=== PATIENT | female | born 1940 | race Caucasian/White ===

== ENCOUNTER 2018-02-23 22:49 | Inpatient (IN) | payer MEDICARE, BC ==
[2018-02-23 23:34] LABS: #Eosinphils 0.2 thou/uL (0.0-0.7); #Lymphocytes 1.9 thou/uL (1.20-3.40); #Monocytes 0.9 thou/uL (0.11-0.59); #Neutrophils 8.1 thou/uL (1.40-6.50); %Basophils 0.3 % (0.0-1.0); %Lymphocytes 17.2 % (21.0-51.0); %Monocytes 7.8 % (0.0-10.0); %Neutrophils 72.8 % (42.0-75.0); Hemoglobin 11.1 g/dL (12.0-16.0); Mean Corpuscular Hemoglobin 27.5 pg (27.0-31.0); Mean Corpuscular Volume 83.4 fL (78.0-98.0); Mean Platelet Volume 8.4 fL (7.4-10.4); Platelet Count 272 thou/uL (130-400); RBC Distribution Width 14.7 % (11.5-14.5); Red Blood Cell (RBC) Count 4.05 mill/uL (4.20-5.40); White Blood Cell (WBC) Count 11.2 thou/uL (4.8-10.8)
[2018-02-23 23:41] LABS: INR-International Normal Ratio 1.4; Prothrombin Time 17.2 SEC (12.0-14.7)
--- NOTE | 2018-02-23 23:44 | RAD ---
CHEST ONE VIEW: HISTORY: Tachycardia. COMPARISON: None. FINDINGS: The cardiac silhouette is magnified and enlarged. The pulmonary vasculature is engorged with widespr ead reticulonodular interstitial prominence. The mediastinum is midline with aortic calcification. No lobar consolidation or evidence of pneumothorax. IMPRESSION: Cardiomegaly with pulmonary vascular congestion. POS: H
[2018-02-23 23:54] LABS: ALT (SGPT) 24 U/L (8-55); AST (SGOT) 11 U/L (5-34); Albumin 3.5 g/dL (3.4-4.8); Alkaline Phosphatase 72 U/L (40-150); Anion Gap 12 mmol/L (10-20); BUN (Urea Nitrogen) 14 mg/dL (9.8-20.1); Bilirubin, Total 0.8 mg/dL (0.2-1.2); CK (CPK) 51 U/L (29-168); Calc. Creatinine Clearance 0 mL/min (70-130); Calcium 8.6 mg/dL (7.8-10.44); Carbon Dioxide 25 mmol/L (23-31); Chloride 107 mmol/L (98-107); Estimated GFR-MDRD 72; Glucose 104 mg/dL (83-110); Lipase 7 U/L (8-78); Potassium 3.4 mmol/L (3.5-5.1); Protein, Total 6.5 g/dL (6.0-8.3); Sodium 141 mmol/L (136-145)
[2018-02-23 23:58] LABS: CKMB 1.6 ng/mL (0-6.6); Troponin I 0.025 ng/mL (< 0.028)
[2018-02-24] MEDS ORDERED: Nitroglycerin 0.4 MG TAB (25 Tab Bottle) ONE (00:40)
[2018-02-24 05:08] LABS: Troponin I 0.038 ng/mL (< 0.028)
[2018-02-24] MEDS ORDERED: Potassium Chloride 20 MEQ TAB ONE (05:12)
[2018-02-24] MEDS ORDERED: Furosemide 40 MG/4 ML VIAL SLOW IVP SCH ×2 (06:29→07:00)
[2018-02-24] MEDS ORDERED: Loratadine 10 MG TAB PO PRN (06:29)
[2018-02-24] MEDS ORDERED: Zolpidem Tartrate 5 MG TAB PO PRN (06:29)
[2018-02-24] MEDS ORDERED: Loperamide HCl 2 MG CAP PO PRN (06:29)
[2018-02-24] MEDS ORDERED: Senokot 8.6 MG TAB PO PRN (06:29)
[2018-02-24] MEDS ORDERED: Milk Of Magnesia 30 ML UDCUP PO PRN (06:29)
[2018-02-24] MEDS ORDERED: Albuterol Sulfate 2.5 mg/3 ml Neb NEB PRN (06:29)
[2018-02-24] MEDS ORDERED: Metoclopramide HCl 10 MG/2 ML VIAL IVP PRN (06:29)
[2018-02-24] MEDS ORDERED: Chloraseptic Spray 180 ml Bottle PO PRN (06:29)
[2018-02-24] MEDS ORDERED: Acetaminophen 325 MG TAB PO PRN (06:29)
[2018-02-24] MEDS ORDERED: Artificial Tears 18 DROP/0.9 ML EA EYE PRN (06:29)
[2018-02-24] MEDS ORDERED: Diabetic Tussin 200 MG/10 ML UDCUP PO PRN (06:29)
[2018-02-24] MEDS ORDERED: Mag-Al 1200 mg/1200 mg/30 ML UDCUP PO PRN (06:29)
[2018-02-24] MEDS ORDERED: Sodium Chloride 0.65% Nasal 44 ML BOT EA NARE PRN (06:29)
[2018-02-24] MEDS ORDERED: Eucerin (Mineral Oil/Petrolatum,White) 30 gm Jar TOP PRN (06:29)
--- NOTE | 2018-02-24 06:36 | HP ---
PRIMARY CARE PHYSICIAN: Dr. Tc Foster. REASON FOR ADMISSION: Dyspnea. HISTORY OF PRESENT ILLNESS: A 77-year-old female who was recently hospitalized at [facility]. Patient went there because she was feeling palpitations and dyspnea. She was diagnosed with atrial fibrillation. She was started on Cardizem CD, flecainide, and Eliquis. She remained in hospital, Friday and discharged on last Friday. Patient reports that by the time of discharge, she was feeling better, she was feeling up to her baseline. On Friday, after discharge at home, she did very well. Friday morning, the patient started feeling shortness of breath again. She was feeling palpitations. She was feeling weak and that is why she decided to come to the hospital for evaluation. Patient reports that at [facility], they did EKG, echocardiogram. The patient reports that Dr. Guerra, manager company, was following. The patient was pleased with Cardiology and primary attending care, but she was not pleased with the hospital and that is why today she decided to come to our hospital. The patient is thinking that she was discharged prematurely. As per patient, Cardiology cleared her for discharge on the day of discharge. Patient denies any fever or chills. She denies any UTI symptoms. She denies any chest pain. She denies any orthopnea or PND. The patient reports leg swelling. The patient also reports that she had ankle edema at [facility], but she is not sure whether she was given any Lasix. She is also not sure whether she has congestive heart failure as nobody mentioned about congestive heart failure to her. Today, in the emergency room, routine blood tests showed elevated BNP, elevated troponin, hypokalemia. Patient does have underlying history of asthma. She had elevated D-dimer and that is why CT angio was done, which showed pleural effusion, but no pulmonary embolism. Chest x-ray did show pulmonary vascular congestion. In the emergency room, patient was appeared tachypneic and that is why we decided to keep this patient in the hospital for treatment. ALLERGIES: No known drug allergy. CURRENT HOME MEDICATIONS: Cardizem-CD 120 mg p.o. daily, Protonix 40 mg p.o. daily, Eliquis 5 mg p.o. b.i.d., aspirin 81 mg p.o. 2 tablets daily, flecainide 50 mg twice daily, Dulera 1 puff inhalation b.i.d., Singulair 10 mg p.o. daily, Ventolin inhaler 2 puffs q.6 hourly p.r.n. PAST MEDICAL HISTORY: Paroxysmal atrial fibrillation, hypertension, dyslipidemia, asthma, chronic physical deconditioning. PAST SURGICAL HISTORY: Retinal detachment surgery, total hysterectomy, back surgery. PAST PSYCHIATRIC HISTORY: Reviewed and negative. SOCIAL HISTORY: Patient lives alone at home. She denies any tobacco, alcohol, or illicit drug abuse. She ambulates with a walker and cane. FAMILY HISTORY: No strong family history of premature coronary artery disease, stroke, or cancer. EMERGENCY ROOM COURSE: The patient is given potassium chloride 20 mEq, nitroglycerin 0.4 mg sublingual. REVIEW OF SYSTEMS: The following complete review of systems was negative, unless otherwise mentioned in the HPI or below: Constitutional: Weight loss or gain, ability to conduct usual activities. Skin: Rash, itching. Eyes: Double vision, pain. ENT/Mouth: Nose bleeding, neck stiffness, pain, tenderness. Cardiovascular: Palpitations, dyspnea on exertion, orthopnea. Respiratory: Shortness of breath, wheezing, cough, hemoptysis, fever or night sweats. Gastrointestinal: Poor appetite, abdominal pain, heartburn, nausea, vomiting, constipation, or diarrhea. Genitourinary: Urgency, frequency, dysuria, nocturia. Musculoskeletal: Pain, swelling. Neurologic/Psychiatric: Anxiety, depression. Allergy/Immunologic: Skin rash, bleeding tendency. Please see my HPI for pertinent positive and negative. PHYSICAL EXAMINATION: VITAL SIGNS: On arrival, blood pressure 131/62, pulse 116 irregular, respiratory rate 18, temperature 98.2, saturation 94% on 2 liter oxygen, weight 113.4 kilograms. GENERAL: Patient is currently alert, awake, tachycardic, in no obvious acute distress. HEAD: Normocephalic, atraumatic. EYES: Pupils are round, reactive to light. Extraocular muscle intact. ENT: Oropharynx within normal limits. Moist mucous membrane. No oral lesion, no pharyngeal erythema, no exudate. NECK: Supple. No JVD, no thyromegaly, no carotid bruit. LUNGS: Bibasilar rales noted. Air entry reduced at base, few end-expiratory wheezing heard. CARDIAC: S1, S2 irregular. No murmur elicited, no gallop, no rub. ABDOMEN: Obesity present. Bowel sounds present, nontender, and nondistended. No organomegaly, no mass, no suprapubic tenderness. BACK: Unremarkable. No CVA tenderness. EXTREMITIES: Upper extremity: Passive movement of all joints are normal. Lower extremities: Bilateral lower extremity pitting edema noted predominantly at ankle. Good distal pulsation. SKIN: No skin rash. HEMATOLOGICAL SYSTEM: No lymphadenopathy. PSYCHIATRIC: Normal affect. NEUROLOGIC: Nonfocal examination. Patient is moving all four limbs. Speech normal. SIGNIFICANT LABORATORY AND DIAGNOSTIC DATA: EKG showing sinus tachycardia, occasional PVCs, monitor was showing intermittent atrial fibrillation. Chest x- ray showed cardiomegaly, pulmonary vascular congestion. CT angio showed pleural effusion and congestion, but no pulmonary embolism. CBC: WBC 11.2, hemoglobin 11.1, platelet 272,000. INR 1.4. D-dimer 0.87. BMP: Sodium 141, potassium 3.4, chloride 107, carbon dioxide 25, anion gap 12, BUN 14, creatinine 0.78, glucose 104, calcium 8.6, magnesium 1.9. LFTs: AST 11, ALT 24 , alkaline phosphatase 72, albumin 3.5. CK-MB 1.6, troponin 0.025. CK 51. Repeat troponin 0.038. BNP 295.3. TSH 2.19. ASSESSMENT AND PLAN: 1. Dyspnea, most likely related with the patient has a new diagnosis of acute diastolic heart failure secondary to atrial fibrillation. We will try to get echocardiography report from [facility] which was done last week. We will treat with Lasix 40 mg IV b.i.d. We will continue Cardizem-CD 120 mg p.o. daily, Eliquis 5 mg p.o. b.i.d., Tambocor 50 mg p.o. b.i.d. The patient might have component of asthma exacerbation and that is why we will also continue Dulera two puff inhalation b.i.d., Singulair 10 mg daily, and Ventolin nebulization q.6 hourly. 2. Acute on chronic diastolic heart failure. Patient has elevated BNP. She has edema of lower extremity. Her clinical history consistent with congestive heart failure, stage C, most likely related with underlying atrial fibrillation. 3. Asthma with possible exacerbation. As mentioned above, we will continue Dulera two puff inhalation b.i.d., Singulair 10 mg daily, and Ventolin nebulization q.6 hourly p.r.n. 4. Demand ischemia of myocardium. We will do serial cardiac enzymes. We will continue aspirin 81 mg p.o. daily. Cardiology will be consulted while in hospital as well. 5. Hypokalemia. Patient is given potassium chloride in the emergency room. We will give her another dose of potassium 20 mEq p.o. b.i.d. and will repeat BMP tomorrow. 6. Paroxysmal atrial fibrillation. Currently, patient has paroxysmal atrial fibrillation. She is in and out of atrial fibrillation. Cardiology will be consulted. We will continue Cardizem-CD, Tambocor as per home dosage along with anticoagulation therapy with Eliquis 5 mg twice daily. 7. Gastroesophageal reflux disease. We will continue Protonix 40 mg p.o. daily. 8. Morbid obesity. Dietary education given, weight loss education given. 9. Chronic physical deconditioning. We will consult PT evaluation while in hospital as well as OT evaluation while in hospital and will consider rehab screen for possible rehab placement. 10. Deep venous thrombosis prophylaxis not needed because the patient is already on Eliquis therapy. 11. Gastrointestinal prophylaxis. The patient is already on Protonix therapy. CODE STATUS: The patient is FULL CODE. Patient does not have any surrogate decision maker. Disposition plan based on clinical course. We are expecting patient's stay in hospital 24-48 hours. Plan of care discussed with the patient in detail. MTDD
[2018-02-24 06:38] VITALS: BMI 43.4
[2018-02-24] MEDS: Mometasone/Formoterol 120 PUFF INHALER INH SCH ×2 (07:56→19:18)
[2018-02-24 08:19] LABS: Troponin I 0.032 ng/mL (< 0.028)
--- NOTE | 2018-02-24 08:41 | CT ---
PRELIMINARY REPORT/[facility]/EMERGENTY AFTER-HOURS PROCEDURE CT Angiography Chest With Intravenous Contrast EXAM DATE/TIME: 02/24/2018 2:43 AM CLINICAL HISTORY: 77 years old, female; Signs and symptoms; Dyspnea and shortness of breath; Patient HX: 77 female pres enting to the er for shortness of breath. Reports developing shortness of breath while watching tv th is evening. Reports having similar symptoms about 1 week ago when she was diagnosed with atrial fibrillation TECHNIQUE: Axial computed tomographic angiography images of the chest with intravenous contrast using CT angiogr aphy protocol. Coronal reformatted images were created and reviewed. MIP reconstructed images were created and reviewed. COMPARISON: No relevant prior studies available. FINDINGS: Pulmonary arteries: The ascending aorta at the level of the right pulmonary artery measures 3 cm. The main pulmonary artery measures 2.4 cm. No evidence of acute pulmonary embolism upto the subsegmental level. Aorta: Mild atherosclerotic calcifications affect the aorta and its branches. Other veins: Reflux of contrast in the hepatic veins likely represents right heart failure. Lungs: Opacities in both lung bases likely represent atelectasis or edema. Nodular opacities in the r ight upper lobe largest measuring 8 mm likely represent infection. Opacity in the right lower lobe li jeanie represents infection. Mild ground glass opacities in both lungs with septal thickening may repre sent mild edema. A nodule measuring 4 mm is seen in the right lung base. A nodule measuring 5 mm is s een in the left upper lobe. Opacity in the lingula may represent atelectasis or infection. A nodule m easuring 3 mm is seen in the left lung base. Pleural space: Bilateral small pleural effusions are seen. Heart: There is calcification of the mitral valve annulus. Coronary artery calcifications are noted. Bones/joints: Mild dextroscoliosis of the thoracic spine is seen. Moderate dextroscoliosis of the lum bar spine is seen. Moderate degenerative changes affect the spine. Chronic posterior dislocation of t he medial end of the left clavicle is seen. Mild wedge compression deformity of the midthoracic vertebra is age indeterminate. Soft tissues: Unremarkable. Lymph nodes: Mildly enlarged pretracheal lymph node measuring 1.2 cm is seen. Mildly enlarged subcari nal lymph node measuring 1.6 cm is seen. Mildly enlarged right hilar lymph node measuring 2 cm is see n. Spleen: Several calcified granulomas are noted in the spleen. IMPRESSION: 1. No evidence of acute pulmonary embolism upto the subsegmental level. 2. Opacities in both lung bases likely represent atelectasis or edema. Nodular opacities in the right upper lobe likely represent infection. Opacity in the right lower lobe likely represents infection. Opacity in the lingula may represent atelectasis or infection. 3. Mild ground glass opacities in both lungs with septal thickening may represent mild edema. 4. Nodule measuring 4 mm in the right lung base. Nodule measuring 5 mm in the left upper lobe. Nodule measuring 3 mm in the left lung base. No followup study is recommended if the patient is at low risk . An optional follow up study can be obtained in 12 months if the patient is at high risk. 5. Bilateral small pleural effusions. 6. Mildly enlarged mediastinal lymph nodes are likely reactive. Thank you for allowing us to participate in the care of your patient. Dictated and Authenticated by: Lida Lua MD 02/24/2018 4:46 AM Central Time ([place] & [place]) FINAL REPORT EMERGENCY AFTER HOURS CT ANGIOGRAM THORAX WITH IV CONTRAST AND 3D RECONSTRUCTIONS: Date: 02/24/18 HISTORY: Shortness of breath. IMPRESSION: 1. No CT evidence of a pulmonary embolus. 2. Atherosclerotic vascular calcifications in the thoracic aorta and coronary arteries. Thoracic aor ta is normal in caliber without evidence of an aortic dissection. 3. Small bilateral pleural effusions and atelectasis. 4. There are nodular densities, as well as patchy parenchymal opacities seen within the right upper, right middle, and right lower lobes, and to a lesser extent at the left lung base, likely related to infectious or inflammatory process. However, given that some of the densities have a nodular appeara nce, follow-up evaluation is recommended to ensure resolution. 5. Mildly enlarged mediastinal lymph nodes, as well as bilateral hilar lymph nodes, which are likely reactive in origin. 6. Mild interstitial thickening which may be related to an element of mild pulmonary edema infectiou s process. 7. Degenerative changes in the spine. Intraarticular loose bodies are seen in the region of the subc oracoid recesses bilaterally. Findings are in agreement with the preliminary report by Mahendra. POS: [facility]
[2018-02-24] MEDS: Apixaban 5 MG TAB PO SCH ×2 (08:58→20:40)
[2018-02-24] MEDS: Potassium Chloride 20 MEQ TAB PO SCH ×2 (08:59→16:09)
[2018-02-24] MEDS ORDERED: Flecainide 50 MG TAB PO SCH (09:00)
[2018-02-24 09:43] LABS: Bilirubin Negative (Negative); Blood, Urine Negative (Negative); Clarity CLEAR (Clear); Glucose, Urine (Dipstick) Negative (Negative); Leukocyte Negative (Negative); Nitrite Negative (Negative); Protein, Urine (Dipstick) Negative (Neg-Trace); pH, Urine 7.5 (5.0-9.0)
[2018-02-24 09:48] LABS: Bacteria/HPF 4+ HPF (None Seen); Hyaline Casts/LPF 0-3 HYALINE CAST LPF (0-3 Hyaline); Pathc Cast-AUWi Flag 0.14 (0-2.49); RBC/HPF 0-3 HPF (0-3); Squamous Epithelial 0-3 HPF (0-3); WBC/HPF 0-3 HPF (0-3)
[2018-02-24] MEDS: Diltiazem 125 MG in Sodium Chloride 0.9% 100 ML IVPB SCH (12:43)
--- NOTE | 2018-02-24 13:38 | PDOC.EVN ---
Event Note - Event Note Event Note: Pt seen and examined. History taken again. H&P reviewed.Chart reviewed. Cont Eliquis, Flecaindie,CCB and lasix for diuresis. Strict I/os. Remains in A-fib for now. Will follow Cardiology recs will get ECHO results from Recent [facility] hospitalization. AM labs Pt seems to have uncontrolled new onset Acute CHF with baseline new diagnosis of A-fib w RVR. Will require further investigation & treatment. Estimated LOS at least 2-3 midnight. Will change to Inpt status.
[2018-02-24] MEDS: Furosemide 40 MG/4 ML VIAL SLOW IVP SCH (14:21)
--- NOTE | 2018-02-24 15:59 | CON ---
DATE OF CONSULTATION: 02/24/2018 HISTORY OF PRESENT ILLNESS: Patient is a pleasant 77-year-old woman who presents with increasing dyspnea. The patient states that about 10 years ago she underwent a cardiac evaluation including cardiac catheterization by Dr. Guerra. She was apparently found to have normal coronary arteries. The patient most recently was admitted with new onset atrial fibrillation to the [facility]. At that time, the patient was started on flecainide and Eliquis. She converted to sinus rhythm. The patient was subsequently discharged. The next morning she started feeling short of breath again and presented to the hospital with palpitations. The patient denied having any chest discomfort. PAST MEDICAL HISTORY: 1. Atrial fibrillation. 2. Hypertension. 3. Asthma. PAST SURGICAL HISTORY: Hysterectomy, back surgery, and retinal surgery. SOCIAL HISTORY: Nonsmoker. FAMILY HISTORY: No strong family history of coronary artery disease. MEDICATIONS ON ADMISSION: Protonix 40 daily, flecainide 50 b.i.d., diltiazem 120 daily, aspirin 81 every day, and Eliquis 5 b.i.d. REVIEW OF SYSTEMS: Ten-point system otherwise unremarkable. She has no known drug allergies. PHYSICAL EXAMINATION: GENERAL: This is an obese woman in mild distress. VITAL SIGNS: Blood pressure is 119/91, heart rate 130, irregular. NECK: Showed no jugular venous distention. LUNGS: Have crackles throughout both lung steven. HEART: Irregular rate and rhythm, normal S1, S2. ABDOMEN: Distended. EXTREMITIES: Showed mild trace edema. SKIN: Warm and dry. NEUROLOGIC: Nonfocal. VASCULAR: Radial pulses are 2+. LABORATORY DATA AND IMAGING DATA: Sodium 141, potassium 3.4, chloride 107, bicarbonate 25, BUN 14, creatinine 0.78. Troponin 0.038. BNP is 294. Chest x- ray revealed a marked bilateral pulmonary edema. Her EKG revealed sinus tachycardia with occasional PVCs. IMPRESSION: 1. Dyspnea secondary to diastolic heart failure. 2. Paroxysmal atrial fibrillation. 3. Hypertension. 4. Asthma. 5. Obesity. This patient presents with recurrent atrial fibrillation. From a cardiac standpoint, I would recommend the patient switch to IV Cardizem to hopefully convert her back to sinus rhythm. Would recommend a higher dose of flecainide. The patient might benefit from undergoing an ablation for her atrial fibrillation if she cannot be maintained in sinus rhythm. We will follow this patient with you through her hospitalization. [facility]
[2018-02-24] MEDS: Flecainide 50 MG TAB PO SCH (20:39)
[2018-02-24] MEDS: Montelukast Sodium 10 mg Tablet PO SCH (20:40)
[2018-02-25] MEDS: Diltiazem 125 MG in Sodium Chloride 0.9% 100 ML IVPB SCH (01:46)
[2018-02-25] MEDS: Furosemide 40 MG/4 ML VIAL SLOW IVP SCH ×2 (05:38→15:20)
[2018-02-25 06:19] LABS: #Eosinphils 0.2 thou/uL (0.0-0.7); #Monocytes 0.9 thou/uL (0.11-0.59); #Neutrophils 4.3 thou/uL (1.40-6.50); %Basophils 0.1 % (0.0-1.0); %Lymphocytes 26.6 % (21.0-51.0); %Monocytes 11.5 % (0.0-10.0); %Neutrophils 58.8 % (42.0-75.0); Hemoglobin 11.3 g/dL (12.0-16.0); Mean Corpuscular HGB CONC 31.4 g/dL (32.0-36.0); Mean Corpuscular Hemoglobin 26.4 pg (27.0-31.0); Mean Corpuscular Volume 84.1 fL (78.0-98.0); Mean Platelet Volume 8.6 fL (7.4-10.4); Platelet Count 264 thou/uL (130-400); RBC Distribution Width 14.9 % (11.5-14.5); Red Blood Cell (RBC) Count 4.29 mill/uL (4.20-5.40); White Blood Cell (WBC) Count 7.4 thou/uL (4.8-10.8)
[2018-02-25 06:44] LABS: Anion Gap 15 mmol/L (10-20); BUN (Urea Nitrogen) 14 mg/dL (9.8-20.1); Calc. Creatinine Clearance 112 mL/min (70-130); Calcium 8.7 mg/dL (7.8-10.44); Carbon Dioxide 24 mmol/L (23-31); Chloride 105 mmol/L (98-107); Estimated GFR-MDRD 73; Glucose 98 mg/dL (83-110); Potassium 3.6 mmol/L (3.5-5.1); Sodium 140 mmol/L (136-145)
--- NOTE | 2018-02-25 08:12 | ECHO ---
TRANSESOPHAGEAL ECHOCARDIOGRAM: DATE OF PROCEDURE: 02/25/18 INDICATION: 77-year-old woman with paroxysmal atrial fibrillation. DESCRIPTION OF PROCEDURE: The patient was taken to the PACU. The patient was sedated by Anesthesiology. A transesophageal probe was placed in the distal esophagus and stomach. Echocardiographic images were obtained. The transesophageal probe was removed. FINDINGS: 1. Mild decrease in left ventricular systolic function. 2. Left atrial enlargement. 3. Moderate mitral regurgitation. 4. Mild tricuspid regurgitation. 5. No formed thrombus in left atrium or left atrial appendage. 6. Atherosclerotic debris in the descending aorta. IMPRESSION: No formed thrombus in left atrium or left atrial appendage.
--- NOTE | 2018-02-25 08:15 | OP ---
CARDIOLOGY PROCEDURE NOTE: Date: 02/25/18 PROCEDURE: Electrical cardioversion. INDICATION FOR PROCEDURE: 77-year-old woman with paroxysmal atrial fibrillation. PROCEDURE DETAILS: The patient was taken to the PACU. The patient was sedated by anesthesiology. The patient was shocked with 200 joules of synchronized electricity. The patient converted to normal sinus rhythm. IMPRESSION: Successful electrical cardioversion.
[2018-02-25] MEDS: Mometasone/Formoterol 120 PUFF INHALER INH SCH ×2 (09:34→19:07)
[2018-02-25] MEDS: Potassium Chloride 20 MEQ TAB PO SCH ×2 (11:06→17:36)
[2018-02-25] MEDS: Apixaban 5 MG TAB PO SCH ×2 (11:06→20:04)
[2018-02-25] MEDS: Flecainide 50 MG TAB PO SCH ×2 (11:07→20:04)
--- NOTE | 2018-02-25 11:35 | PDOC.PN ---
- Subjective Encounter Start Date: 02/25/18 Encounter Start Time: 09:20 -: old records requested/rev Patient seen and examined. No new complaints. No overnight events pt had cardioversion today - Objective Resuscitation Status: Resuscitation Status FULL:Full Resuscitation MAR Reviewed: Yes Vital Signs & Weight: Vital Signs (12 hours) Temp Pulse Resp BP Pulse Ox 02/25/18 09:10 98.0 F 89 18 127/61 94 L 02/25/18 04:00 97.5 F L 91 16 127/60 97 Weight Weight 251 lb 7 oz I&O: 02/24/18 02/25/18 02/26/18 06:59 06:59 06:59 Intake Total 1058 Output Total 1300 Balance -242 Result Diagrams: 02/25/18 05:50 02/25/18 05:50 Radiology Reviewed by me: Yes (LAURA noted) EKG Reviewed by me: Yes (nsr) Phys Exam - Physical Examination Constitutional: NAD HEENT: PERRLA, moist MMs, sclera anicteric Neck: no JVD, supple Respiratory: no wheezing, no rales, no rhonchi Cardiovascular: RRR, no significant murmur, no rub Gastrointestinal: soft, non-tender, no distention, positive bowel sounds Musculoskeletal: no edema, pulses present Neurological: non-focal, normal sensation, moves all 4 limbs Lymphatic: no nodes Psychiatric: normal affect, A&O x 3 Skin: no rash, normal turgor Dx/Plan (1) Acute diastolic ACC/AHA stage C congestive heart failure Code(s): I50.31 - ACUTE DIASTOLIC (CONGESTIVE) HEART FAILURE Status: Acute (2) Atrial fibrillation Code(s): I48.91 - UNSPECIFIED ATRIAL FIBRILLATION Status: Acute Qualifiers: Atrial fibrillation type: paroxysmal Qualified Code(s): I48.0 - Paroxysmal atrial fibrillation Comment: s/p cardioversion, converted to nsr (3) Demand ischemia Code(s): I24.8 - OTHER FORMS OF ACUTE ISCHEMIC HEART DISEASE Status: Acute (4) Hypokalemia Code(s): E87.6 - HYPOKALEMIA Status: Acute (5) Morbid obesity with BMI of 40.0-44.9, adult Code(s): E66.01 - MORBID (SEVERE) OBESITY DUE TO EXCESS CALORIES; Z68.41 - BODY MASS INDEX (BMI) 40.0-44.9, ADULT Status: Acute (6) Asthma Code(s): J45.909 - UNSPECIFIED ASTHMA, UNCOMPLICATED Status: Chronic (7) Physical deconditioning Code(s): R53.81 - OTHER MALAISE Status: Chronic - Plan cont current plan of care, plan discussed w/ family, PT/OT * s/p LAURA, cardioversion today * continue IV lasix * monitor on tele * continue PT * continue following medication * symptomatic treatment as below * cardiology following and will adjust medication today * discussed with family bedside. Review of Systems - Review of Systems Eyes: negative: Pain, Vision Change, Conjunctivae Inflammation, Eyelid Inflammation, Redness, Other ENT: negative: Ear Pain, Ear Discharge, Nose Pain, Nose Discharge, Nose Congestion, Mouth Pain, Mouth Swelling, Throat Pain, Throat Swelling, Other Respiratory: negative: Cough, Dry, Shortness of Breath, Hemoptysis, SOB with Excertion, Pleuritic Pain, Sputum, Wheezing Cardiovascular: negative: chest pain, palpitations, orthopnea, paroxysmal nocturnal dyspnea, edema, light headedness, other Gastrointestinal: negative: Nausea, Vomiting, Abdominal Pain, Diarrhea, Constipation, Melena, Hematochezia, Other Genitourinary: negative: Dysuria, Frequency, Incontinence, Hematuria, Retention , Other Musculoskeletal: negative: Neck Pain, Shoulder Pain, Arm Pain, Back Pain, Hand Pain, Leg Pain, Foot Pain, Other Skin: negative: Rash, Lesions, [place], Bruising, Other - Medications/Allergies Allergies/Adverse Reactions: Allergies Allergy/AdvReac Type Severity Reaction Status Date / Time No Known Allergies Allergy Verified 02/24/18 07:22 Medications: Current Medications Acetaminophen (Tylenol) 650 mg PO Q4H PRN PRN Reason: Headache/Fever or Pain Al Hydroxide/Mg Hydroxide (Maalox) 30 ml PO Q6H PRN PRN Reason: Heartburn or Indigestion Albuterol Sulfate (Ventolin) 2.5 mg NEB [id number] PRN PRN Reason: Wheezing Apixaban (Eliquis) 5 mg PO BID [facility] Last Admin: 02/25/18 11:06 Dose: 5 mg Artificial Tears (Tears Naturale) 0 drop EA EYE PRN PRN PRN Reason: Dry Eyes Aspirin (Aspirin Chewable) 81 mg PO DAILY [facility] Last Admin: 02/25/18 11:08 Dose: 81 mg Flecainide Acetate (Tambocor) 75 mg PO Q12HR [facility] Last Admin: 02/25/18 11:07 Dose: 75 mg Furosemide (Lasix) 40 mg SLOW IVP 0600,1400 [facility] Last Admin: 02/25/18 05:38 Dose: 40 mg Guaifenesin (Robitussin Sf) 200 mg PO Q4H PRN PRN Reason: Cough Diltiazem HCl 125 mg/ Sodium (Chloride) 125 mls @ 10 mls/hr IVPB INF [facility] Last Admin: 02/25/18 01:46 Dose: 125 mls Loperamide HCl (Imodium) 2 mg PO PRN PRN PRN Reason: Diarrhea/Loose Stools Loratadine (Claritin) 10 mg PO DAILYPRN PRN PRN Reason: Sinus Symptoms Magnesium Hydroxide (Milk Of Magnesium) 30 ml PO DAILYPRN PRN PRN Reason: Constipation Metoclopramide HCl (Reglan) 10 mg IVP Q6H PRN PRN Reason: Nausea/Vomiting Mineral Oil/White Petrolatum (Eucerin Cream) 0 gm TOP BIDPRN PRN PRN Reason: Dry Skin Mometasone Furoate/Formoterol Fumar (Dulera 200 Mcg/5 Mcg Inhaler) 2 puff INH BID-RT [facility] Last Admin: 02/25/18 09:34 Dose: Not Given Montelukast Sodium (Singulair) 10 mg PO QPM [facility] Last Admin: 02/24/18 20:40 Dose: 10 mg Pantoprazole Sodium (Protonix) 40 mg PO DAILY [facility] Last Admin: 02/25/18 11:08 Dose: 40 mg Phenol (Chloraseptic [place] 180 Ml Bot) 0 ml PO PRN PRN PRN Reason: Sore Throat Potassium Chloride (K-Dur) 20 meq PO BID-WM [facility] Last Admin: 02/25/18 11:06 Dose: 20 meq Senna (Senokot) 2 tab PO HSPRN PRN PRN Reason: Constipation Sodium Chloride ([place] Nasal [place] 0.65%) 0 ml EA NARE QIDPRN PRN PRN Reason: Nasal Congestion Zolpidem Tartrate (Ambien) 5 mg PO HSPRN PRN PRN Reason: Insomnia
--- NOTE | 2018-02-25 13:07 | EKG ---
Test Reason : Blood Pressure : / mmHG Vent. Rate : 110 BPM Atrial Rate : 110 BPM P-R Int : 138 ms QRS Dur : 102 ms QT Int : 348 ms P-R-T Axes : 056 054 020 degrees QTc Int : 470 ms Sinus tachycardia with occasional Premature ventricular complexes Otherwise normal ECG Confirmed by TOBY MINOR DO ([id number]), movie editor ROHAN SONI ([id number]) on 02/25/2018 1:07:18 PM Referred By: Confirmed By:TOBY MINOR DO
[2018-02-25] MEDS: Montelukast Sodium 10 mg Tablet PO SCH (20:05)
[2018-02-26] MEDS: Furosemide 40 MG/4 ML VIAL SLOW IVP SCH (05:23)
[2018-02-26] MEDS: Flecainide 50 MG TAB PO SCH (08:36)
[2018-02-26] MEDS: Potassium Chloride 20 MEQ TAB PO SCH (08:37)
[2018-02-26] MEDS: Apixaban 5 MG TAB PO SCH (08:37)
[2018-02-26] MEDS: Mometasone/Formoterol 120 PUFF INHALER INH SCH (09:57)
--- NOTE | 2018-02-26 12:06 | DIS ---
DATE OF ADMISSION: 02/24/2018 DATE OF DISCHARGE: 02/26/2018 PRIMARY CARE PHYSICIAN: Tc Foster M.D. DISCHARGE DISPOSITION: Home. PRIMARY DISCHARGE DIAGNOSES: 1. Atrial fibrillation with rapid ventricular response, converted to normal sinus rhythm. 2. Status post cardioversion. 3. Acute stage C diastolic heart failure. 4. Demand ischemia of myocardium. 5. Hypokalemia. SECONDARY DISCHARGE DIAGNOSES: Morbid obesity with body mass index 40, asthma, paroxysmal atrial fib rillation. PRIMARY PROCEDURE/OPERATION: 1. Transesophageal echocardiography, which showed no atrial thrombus, mild systolic dysfunction. 2. DC cardioversion by Dr. Faulkner. RADIOLOGICAL INVESTIGATION: CT angio was negative for PE. Chest x-ray showed no evidence of acute p rocess other than pulmonary vascular congestion. SIGNIFICANT LABORATORY DATA: WBC 7.4, hemoglobin 11.3, platelet 264. INR 1.4. D-dimer 0.87. Sodiu m 140, potassium 3.6, BUN 14, creatinine 0.77, calcium 8.7, magnesium 1.9, troponin 0.032. BNP 295.3 . TSH 2.19. Urinalysis unremarkable. DISCHARGE MEDICATIONS: Tambocor 50 mg twice daily, Eliquis 5 mg p.o. b.i.d., aspirin 81 mg p.o. emilie y, Cardizem-CD 120 mg p.o. daily, Dulera two puff inhalation b.i.d., Singulair 10 mg p.o. at bedtime, Protonix 40 mg p.o. daily, Lasix 40 mg p.o. daily. CONTRAINDICATIONS: None. CODE STATUS: FULL CODE. INPATIENT CONSULTANTS: Dr. Faulkner was consulted while in hospital. TEST RESULTS PENDING ON DISCHARGE: None. ALLERGIES: No known drug allergy. DISCHARGE PLAN: Post hospital, the patient will follow up with primary care physician and primary ca rdiologist in 1 week. HOSPITAL COURSE: A 77-year-old female who was recently admitted at [facility] in [facility] for new onset atrial fibrillation with rapid ventricular response. She was discharged belgica e at that time she was not feeling better and that is why she decided to come to our hospital with a complaint of dyspnea and palpitations. Her BNP was elevated. Her chest x-ray was showing pulmonary vascular congestion. Her CT angio was showing findings suggestive of pleural effusion. We suspected diastolic heart failure from atrial fibrillation. We did a transesophageal echocardiography which s howed systolic and diastolic dysfunction. There was no left atrial appendage thrombus. Dr. Faulkner need a cardioversion and subsequently she remained in sinus rhythm. Before that we treated her atri al fibrillation with a Cardizem drip with rate controlled, but she continued to remain in atrial fibr illation that is why she required DC cardioversion. After cardioversion, the patient was feeling muc h better. She was also given Lasix during this hospital course for diastolic heart failure. By the time of discharge, she was on room air. She was euvolemic. She was able to talk in full sentence. She was ambulatory and she was feeling back to normal level and [facility] also cleared her for discharge as well. PHYSICAL EXAMINATION: The patient is seen and examined at bedside today. VITAL SIGNS: Currently, temperature 96.4, pulse 97 and regular, respiratory rate 18, saturation 99% on room air, blood pressure 133/62, weight 234 pounds. GENERAL: The patient is currently alert, awake, no obvious acute distress. HEAD: Normocephalic, atraumatic. EYES: Pupils round, reactive to light. Extraocular muscle intact. ENT: Oropharynx within normal limits. Moist mucous membranes. No oral lesion, no pharyngeal erythe ma, no exudate. NECK: Supple, no JVD, no thyromegaly, no carotid bruit. LUNGS: Clear to auscultation without any rhonchi or rales. CARDIAC: S1, S2 regular without any murmur. ABDOMEN: Soft and benign without any tenderness. EXTREMITIES: No edema. NEUROLOGIC: Nonfocal examination. Overall, the patient is medically stable for discharge. Total time spent on discharge day was 31 minutes.
[2018-02-26 13:51] VITALS: BP 130/68; TEMP 97.5
== END 2018-02-26 13:52 | disposition home or self-care (01) | DRG 308 ==
LOC: ERS 22:49 → 2SW 02-24 05:54 → OBSVTOIN 02-24 13:35 → 2NO 02-24 14:46
PROVIDERS: ADMIT Internal Medicine; ATTEND Internal Medicine
PROC: 5A2204Z Restoration of Cardiac Rhythm, Single (ICD-10-PCS; principal; 2018-02-25)
PROC: B245ZZ4 Ultrasonography of Left Heart, Transesophageal (ICD-10-PCS; 2018-02-25)
DX: I48.0 Paroxysmal atrial fibrillation (principal); I50.33 Acute on chronic diastolic (congestive) heart failure; J90 Pleural effusion, not elsewhere classified; I24.8 Other forms of acute ischemic heart disease; Z68.41 Body mass index [BMI] 40.0-44.9, adult; I11.0 Hypertensive heart disease with heart failure; E87.6 Hypokalemia; E78.5 Hyperlipidemia, unspecified; J45.909 Unspecified asthma, uncomplicated; K21.9 Gastro-esophageal reflux disease without esophagitis; E66.01 Morbid (severe) obesity due to excess calories
CPT/HCPCS: 36415; 71045; 71275; 80048; 80053; 81001; 82553; 83690; 83735; 83880; 84443; 84484; 85025; 85379; 85610; 85730; 92960; 93005; 93312; 93798; G8978-GP-CK; G8979-GP-CI; G8987-GO-CJ; G8988-GO-CI; J1940; J7050

== ENCOUNTER 2018-07-23 06:38 | Day surgery (SDC) | payer MEDICARE, BC ==
[2018-07-22 13:58] VITALS: BMI 38.6
[~2018-07-23 06:38] MED LIST: Cyclopentolate 1% Opth Drop 2 ML BOT FS SCH; EPINEPHrine 0.3 MG in Ophthalmic Irrigation Solution 500 ML FS SCH; Phenylephrine 2.5% Ophth Soln 5 ML BOT FS SCH
[2018-07-23] MEDS ORDERED: Midazolam HCl 2 mg/2 ml Vial ONE (06:46)
[2018-07-23] MEDS ORDERED: Fentanyl 100 MCG/2 ML VIAL ONE (06:46)
[2018-07-23] MEDS ORDERED: Cyclopentolate 1% Opth Drop 2 ML BOT ONE (07:16)
[2018-07-23] MEDS ORDERED: Phenylephrine 2.5% Ophth Soln 5 ML BOT ONE (07:16)
[2018-07-23] MEDS ORDERED: hydrALAZINE 20 MG/ML VIAL ONE (08:54)
--- NOTE | 2018-07-23 10:07 | OP ---
DATE OF PROCEDURE: 07/23/2018 PREOPERATIVE DIAGNOSIS: Epiretinal membrane, macular hole, left eye. POSTOPERATIVE DIAGNOSIS: Epiretinal membrane, macular hole, left eye. PROCEDURE PERFORMED: Pars plana vitrectomy and internal limiting membrane peel, left eye. ANESTHESIA: Local with monitored anesthesia care. DESCRIPTION OF PROCEDURE: The patient was identified in the preoperative holding area. Appropriate informed consent for the planned surgical procedure on the left eye had been obtained. The patient was transported to the operative suite, where appropriate cardiopulmonary monitoring was established. Local anesthesia was obtained using retrobulbar block modified Van Lint lid block using 50:50 mixture of 4% lidocaine and 0.75% bupivacaine. The patient was prepped and draped in usual sterile manner for ophthalmic surgery on the left eye. Lid speculum was placed in the left eye. A 25-gauge trocar was placed through the conjunctiva and sclera superotemporally, inferotemporally, and superonasally. Infusion line was placed inferotemporally. Light pipe and vitreous cutter were inserted into the eye. Core vitrectomy was performed. ICG dye was infused on the posterior pole x3, identifying a flat scar that cover the entire posterior pole. This was elevated using a membrane scraper and eventually peeled across the entire area inside the arcade vessels without complication. At the end of the case, epiretinal membrane was noted to be clear. Indirect ophthalmoscopy was used to examine the retina 360 degrees. No holes, breaks, or tears were identified. A 28% sulfur hexafluoride gas was infused into the eye. Trocars were removed. The eye was noted to retain pressure well. Retrobulbar Kenalog and subconjunctival Ancef were placed. Atropine antibiotic ointment was placed and the eye was patched and shielded. The patient was taken to the postoperative recovery unit in good condition, having suffered no immediate perioperative complications. The patient was instructed to keep the patch and shield on, avoid lifting or bending, avoid flat and back positioning. Followup in the morning with Dr. Olivarez. Job ID: [id number]
[2018-07-23] MEDS ORDERED: Metoprolol Tartrate 5 MG/5 ML VIAL ONE (16:05)
[2018-07-23] MEDS ORDERED: PROPOFOL 200 MG/20 ML VIAL ONE (16:05)
[2018-07-23] MEDS ORDERED: Bupivacaine 0.75% 10 ML AMP ONE (16:05)
[2018-07-23] MEDS ORDERED: Indocyanine Green 25 MG/10 ML VIAL ONE (16:05)
[2018-07-23] MEDS ORDERED: CEFAZOLIN 1 GM VIAL ONE (16:05)
[2018-07-23] MEDS ORDERED: Maxitrol 0.1% Opth Oint 3.5 GM TUBE ONE (16:05)
[2018-07-23] MEDS ORDERED: Triamcinolone 40 MG/ML VIAL ONE (16:05)
[2018-07-23] MEDS ORDERED: Lidocaine 1% PF 5 ML VIAL ONE (16:05)
[2018-07-23] MEDS ORDERED: Lidocaine 4% PF 5 ML AMP ONE (16:05)
== END 2018-07-23 10:45 | disposition home or self-care (01) ==
LOC: SDC 06:38
PROVIDERS: ATTEND Ophthalmology Retina Specialist
PROC: 08T53ZZ Resection of Left Vitreous, Percutaneous Approach (ICD-10-PCS; principal; 2018-07-23)
PROC: 08NF3ZZ Release Left Retina, Percutaneous Approach (ICD-10-PCS; 2018-07-23)
DX: H35.372 Puckering of macula, left eye (principal); H35.342 Macular cyst, hole, or pseudohole, left eye; Z79.01 Long term (current) use of anticoagulants; Z79.899 Other long term (current) drug therapy
CPT/HCPCS: 67025; J0171; J0360; J0690; J2001; J2250; J2704; J3010; J3301; J3490

== ENCOUNTER 2019-08-15 18:05 | Emergency (ER) | payer MEDICARE, BC ==
--- NOTE | 2019-08-15 20:20 | CT ---
Exam: Head CT without contrast HISTORY: Patient tripped and fell. Hit head on concrete. Left forehead bruising. COMPARISON: 06/29/2007 FINDINGS: Hemorrhage: No intraparenchymal hemorrhage or extra-axial hematoma. Brain parenchyma: Cortical meredith-white matter differentiation is preserved. No mass effect or midline shift. Basilar cisterns are patent. Ventricular system: Ventricles and sulci are patent and symmetric. Calvarium: Intact Left frontal scalp hematoma. Sinuses and mastoid air cells: Mild mucosal disease of the right sphenoid sinus IMPRESSION: No intracranial post traumatic sequelae
[2019-08-15] MEDS ORDERED: Morphine 4 MG/ML VIAL ONE (21:18)
--- NOTE | 2019-08-15 21:45 | RAD ---
LUMBAR SPINE THREE VIEWS: HISTORY: Fall. Pain. FINDINGS: Dextroscoliosis lumbar spine. Five lumbar type vertebra. Vertebral body heights are maintained. No fr acture. Multilevel degenerative disc disease. Visualized sacrum and bony pelvis are unremarkable. Atherosclerosis of the aorta. Degenerative changes in both hip joints. IMPRESSION: No fracture. Transcribed Date/Time: 08/15/2019 10:21 PM
== END 2019-08-15 22:24 | disposition home or self-care (01) ==
LOC: ERS 18:05
DX: S05.12XA Contusion of eyeball and orbital tissues, left eye, initial encounter (principal); M54.5 Low back pain; I10 Essential (primary) hypertension; E78.5 Hyperlipidemia, unspecified; J45.909 Unspecified asthma, uncomplicated; I48.91 Unspecified atrial fibrillation; Z79.899 Other long term (current) drug therapy; Z79.891 Long term (current) use of opiate analgesic; W01.198A Fall on same level from slipping, tripping and stumbling with subsequent striking against other object, initial encounter
CPT/HCPCS: 70450; 72100; 96372; J2270

== ENCOUNTER 2022-12-24 20:06 | Inpatient (IN) | payer MEDICARE, BC ==
[2022-12-24] MEDS ORDERED: Ipratropium/Albuterol 3 ML NEB ONE (20:34)
[2022-12-24 20:59] LABS: #Basophils 0.1 thou/uL (0.0-0.2); #Eosinphils 0.3 thou/uL (0.0-0.7); #Monocytes 0.7 thou/uL (0.11-0.59); #Neutrophils 5.4 thou/uL (1.40-6.50); %Basophils 0.9 % (0.0-1.0); %Eosinophils 3.8 % (0.0-10.0); %Lymphocytes 14.2 % (21.0-51.0); %Monocytes 9.7 % (0.0-10.0); Hemoglobin 7.7 g/dL (12.0-16.0); Mean Corpuscular HGB CONC 27.5 g/dL (32.0-36.0); Mean Corpuscular Hemoglobin 20.2 pg (27.0-31.0); Mean Corpuscular Volume 73.5 fl (78.0-98.0); Mean Platelet Volume 10.3 fL (7.4-10.4); Platelet Count 430 10x3/uL (130-400); RBC Distribution Width 25.5 % (11.5-14.5); Red Blood Cell (RBC) Count 3.81 mill/uL (4.20-5.40); White Blood Cell (WBC) Count 7.7 10x3/uL (4.8-10.8)
[2022-12-24 21:20] LABS: ALT (SGPT) 33 U/L (8-55); AST (SGOT) 31 U/L (5-34); Albumin 3.3 g/dL (3.4-4.8); Alkaline Phosphatase 93 U/L (40-110); Anion Gap 15 mmol/L (10-20); BUN (Urea Nitrogen) 28 mg/dL (9.8-20.1); Bilirubin, Total 0.4 mg/dL (0.2-1.2); Calc. Creatinine Clearance 0 mL/min (70-130); Calcium 8.8 mg/dL (7.8-10.44); Carbon Dioxide 31 mmol/L (23-31); Chloride 96 mmol/L (98-107); Estimated GFR 75; Glucose 129 mg/dL (83-110); Potassium 4.5 mmol/L (3.5-5.1); Protein, Total 7.3 g/dL (5.8-8.1); Sodium 137 mmol/L (136-145)
[2022-12-24 21:22] LABS: INR-International Normal Ratio 1.1; Prothrombin Time 14.7 sec (12.0-14.7)
[2022-12-24 21:23] LABS: PTT 39.4 sec (22.9-36.1)
[2022-12-24 21:25] LABS: Anisocytosis SLIGHT = 6-15 cells HPF (0-5); Burr Cells SLIGHT = 2-5 cells HPF (0-1); Hypochromia SLIGHT = 6-15 cells HPF (0-5); Large Platelets 10.7 % (0-5); Microcytosis SLIGHT = 6-15 cells HPF (0-5); Ovalocytes SLIGHT = 2-5 cells HPF (0-1); Platelet Adequacy Comment Platelets Increased; Polychromasia MODERATE = 3-4 cells HPF (0-2); Target Cells SLIGHT = 2-5 cells HPF (0-1)
[2022-12-24] MEDS ORDERED: Cefepime 2 GM VIAL ONE (22:21)
[2022-12-24] MEDS ORDERED: Vancomycin 1 GM/200 ML (FROZEN) BAG ONE (22:21)
[2022-12-24] MEDS ORDERED: Ondansetron PF 4 MG/2 ML Vial IVP PRN (22:33)
[2022-12-24] MEDS ORDERED: HYDROcodone/Acetaminophen 5/325 mg Tablet PO PRN (22:33)
[2022-12-25] MEDS ORDERED: Vancomycin 1 GM/200 ML (FROZEN) BAG ONE (00:27)
[2022-12-25] MEDS ORDERED: Vancomycin 1 GM in Premix Bag 1 BAG IVPB SCH (00:30)
[2022-12-25 03:59] LABS: Anion Gap 16 mmol/L (10-20); BUN (Urea Nitrogen) 27 mg/dL (9.8-20.1); Calc. Creatinine Clearance 123 mL/min (70-130); Calcium 8.7 mg/dL (7.8-10.44); Carbon Dioxide 26 mmol/L (23-31); Chloride 98 mmol/L (98-107); Estimated GFR 84; Glucose 108 mg/dL (83-110); Potassium 5.3 mmol/L (3.5-5.1); Sodium 135 mmol/L (136-145)
[2022-12-25] MEDS: Iron, Sodium Ferric Gluconate 125 MG in Sodium Chloride 0.9% 100 ML IVPB SCH (04:02)
[2022-12-25 04:04] LABS: Troponin I 0.011 ng/mL (< 0.028)
[2022-12-25 05:14] LABS: #Eosinphils 0.3 thou/uL (0.0-0.7); #Monocytes 0.9 thou/uL (0.11-0.59); #Neutrophils 4.9 thou/uL (1.40-6.50); %Basophils 0.5 % (0.0-1.0); %Eosinophils 3.8 % (0.0-10.0); %Lymphocytes 18.8 % (21.0-51.0); %Monocytes 11.9 % (0.0-10.0); %Neutrophils 64.5 % (42.0-75.0); Hemoglobin 7.4 g/dL (12.0-16.0); Mean Corpuscular HGB CONC 27.4 g/dL (32.0-36.0); Mean Corpuscular Hemoglobin 20.1 pg (27.0-31.0); Mean Platelet Volume 10.3 fL (7.4-10.4); Platelet Count 411 10x3/uL (130-400); RBC Distribution Width 25.4 % (11.5-14.5); Red Blood Cell (RBC) Count 3.68 mill/uL (4.20-5.40); White Blood Cell (WBC) Count 7.6 10x3/uL (4.8-10.8)
[2022-12-25 05:22] LABS: Mean Corpuscular Volume 73.4 fl (78.0-98.0)
[2022-12-25] MEDS: Famotidine/PF 20 mg/2ml Vial SLOW IVP SCH ×2 (09:17→21:05)
[2022-12-25] MEDS: Cefepime 2 GM in Sodium Chloride 0.9% 100 ML IVPB SCH ×2 (09:17→21:04)
[2022-12-25] MEDS: Ipratropium/Albuterol 3 ML NEB NEB PRN (13:24)
[2022-12-25] MEDS ORDERED: Polyethylene Glycol 3350 17 GM Packet PO PRN (14:02)
[2022-12-25] MEDS ORDERED: Furosemide 40 MG/4 ML VIAL SLOW IVP SCH ×2 (14:45→21:00)
[2022-12-25 14:57] LABS: Potassium 4.5 mmol/L (3.5-5.1)
[2022-12-25] MEDS: Mometasone 100 MCG/Formoterol 5 MCG 120 PUFF INHALER INH SCH (19:19)
[2022-12-25] MEDS: Carvedilol 6.25 MG TAB PO SCH (21:04)
[2022-12-25] MEDS: Melatonin 3 MG TAB PO PRN (21:04)
[2022-12-25 22:57] LABS: Bilirubin Negative (Negative); Blood, Urine 1+ (Negative); Clarity Clear (Clear); Glucose, Urine (Dipstick) Normal (Negative); Ketone, Urine Negative (Negative); Leukocyte 75 Leu/uL (Negative); Nitrite Negative (Negative); Protein, Urine (Dipstick) Negative (Neg-Trace); RBC/HPF 21-50 HPF (0-3); Specific Gravity, Urine 1.007 (1.002-1.036); Squamous Epithelial 0-3 HPF (0-3); Urobilinogen Normal mg/dL (Less than 2); pH, Urine 5.5 (5.0-9.0)
[2022-12-25 22:58] LABS: Bacteria/HPF Rare-Few HPF (None Seen)
[2022-12-26] MEDS: Vancomycin 1.5 GRAM/300 ML BAG 1.5 GM in Premix Bag 1 BAG IVPB SCH (00:05)
[2022-12-26 04:39] LABS: #Basophils 0.1 thou/uL (0.0-0.2); #Eosinphils 0.3 thou/uL (0.0-0.7); #Neutrophils 5.5 thou/uL (1.40-6.50); %Basophils 0.7 % (0.0-1.0); %Eosinophils 2.9 % (0.0-10.0); %Lymphocytes 20.4 % (21.0-51.0); %Monocytes 11.7 % (0.0-10.0); %Neutrophils 62.7 % (42.0-75.0); Hemoglobin 7.3 g/dL (12.0-16.0); Mean Corpuscular Hemoglobin 20.2 pg (27.0-31.0); Mean Platelet Volume 10.3 fL (7.4-10.4); Platelet Count 454 10x3/uL (130-400); RBC Distribution Width 25.5 % (11.5-14.5); Red Blood Cell (RBC) Count 3.61 mill/uL (4.20-5.40); White Blood Cell (WBC) Count 8.7 10x3/uL (4.8-10.8)
[2022-12-26 04:40] LABS: Mean Corpuscular HGB CONC 28.2 g/dL (32.0-36.0); Mean Corpuscular Volume 71.7 fl (78.0-98.0)
[2022-12-26 05:06] LABS: Anion Gap 14 mmol/L (10-20); BUN (Urea Nitrogen) 22 mg/dL (9.8-20.1); Calc. Creatinine Clearance 115 mL/min (70-130); Calcium 8.5 mg/dL (7.8-10.44); Carbon Dioxide 32 mmol/L (23-31); Chloride 97 mmol/L (98-107); Estimated GFR 77; Glucose 71 mg/dL (83-110); Potassium 4.3 mmol/L (3.5-5.1); Sodium 139 mmol/L (136-145)
[2022-12-26] MEDS: Furosemide 40 MG/4 ML VIAL SLOW IVP SCH ×2 (05:26→14:46)
[2022-12-26] MEDS: Iron, Sodium Ferric Gluconate 125 MG in Sodium Chloride 0.9% 100 ML IVPB SCH (05:26)
[2022-12-26] MEDS: Mometasone 100 MCG/Formoterol 5 MCG 120 PUFF INHALER INH SCH ×4 (06:30→18:50)
[2022-12-26] MEDS: Cefepime 2 GM in Sodium Chloride 0.9% 100 ML IVPB SCH (08:31)
[2022-12-26] MEDS: Famotidine/PF 20 mg/2ml Vial SLOW IVP SCH ×2 (08:31→20:52)
[2022-12-26] MEDS: Carvedilol 6.25 MG TAB PO SCH ×2 (08:31→20:51)
[2022-12-26] MEDS: Ipratropium/Albuterol 3 ML NEB NEB PRN ×2 (12:32→18:52)
[2022-12-26] MEDS: cefTRIAXone\\ROCEPHIN 1 GM in Sodium Chloride 0.9% 100 ML IVPB SCH (18:22)
[2022-12-26 19:19] LABS: Actual Bicarbonate (HCO3a) 42.5 mEq/L (22-28); Base Excess (BEa) 15.5 mEq/L (-2.0 to +3.0); Calcium, Ionized (arterial) 1.05 mmol/L (1.12-1.30); Carboxyhemoglobin (COHb) 1.2 gm% (0.0-3.0); Hematocrit-ABG 26 % (36.0-47.0); Hemoglobin (Hb) 8.7 g/dL (12.0-16.0); Potassium - ABG Lab 3.95 mmol/L (3.70-5.30); pH, Arterial 7.397 (7.35-7.45)
[2022-12-26 19:21] LABS: CO2 Tension 70.6 mmHg (35.0-45.0); Puncture Site LRA
[2022-12-26 23:22] LABS: Vancomycin, Trough 16.9 ug/mL
[2022-12-27] MEDS: Vancomycin 1.5 GRAM/300 ML BAG 1.5 GM in Premix Bag 1 BAG IVPB SCH (01:58)
[2022-12-27 03:56] LABS: #Basophils 0.1 thou/uL (0.0-0.2); #Eosinphils 0.4 thou/uL (0.0-0.7); #Monocytes 1.1 thou/uL (0.11-0.59); #Neutrophils 4.9 thou/uL (1.40-6.50); %Basophils 0.9 % (0.0-1.0); %Eosinophils 4.6 % (0.0-10.0); %Lymphocytes 19.8 % (21.0-51.0); %Monocytes 12.8 % (0.0-10.0); Hemoglobin 7.6 g/dL (12.0-16.0); Mean Corpuscular HGB CONC 27.6 g/dL (32.0-36.0); Mean Corpuscular Hemoglobin 19.8 pg (27.0-31.0); Mean Corpuscular Volume 71.6 fl (78.0-98.0); Mean Platelet Volume 9.7 fL (7.4-10.4); Platelet Count 448 10x3/uL (130-400); RBC Distribution Width 25.7 % (11.5-14.5); Red Blood Cell (RBC) Count 3.84 mill/uL (4.20-5.40); White Blood Cell (WBC) Count 8.2 10x3/uL (4.8-10.8)
[2022-12-27 04:31] LABS: BUN (Urea Nitrogen) 22 mg/dL (9.8-20.1); Calc. Creatinine Clearance 114 mL/min (70-130); Calcium 8.5 mg/dL (7.8-10.44); Estimated GFR 77; Glucose 98 mg/dL (83-110)
[2022-12-27 04:40] LABS: Anion Gap 17 mmol/L (10-20); Carbon Dioxide 36 mmol/L (23-31); Chloride 93 mmol/L (98-107); Potassium 3.6 mmol/L (3.5-5.1); Sodium 142 mmol/L (136-145)
[2022-12-27] MEDS: Iron, Sodium Ferric Gluconate 125 MG in Sodium Chloride 0.9% 100 ML IVPB SCH (05:52)
[2022-12-27 06:31] LABS: CellaVision Operator ID LAB.GE; Hypochromia SLIGHT = 6-15 cells HPF (0-5); Microcytosis MODERATE=15-30 cells HPF (0-5); Platelet Adequacy Comment Platelets Increased; Polychromasia MODERATE = 3-4 cells HPF (0-2)
[2022-12-27] MEDS: Mometasone 100 MCG/Formoterol 5 MCG 120 PUFF INHALER INH SCH ×2 (07:11→18:58)
[2022-12-27] MEDS: Carvedilol 6.25 MG TAB PO SCH ×2 (08:19→20:30)
[2022-12-27] MEDS: Famotidine/PF 20 mg/2ml Vial SLOW IVP SCH ×2 (08:20→20:30)
[2022-12-27] MEDS: Ipratropium/Albuterol 3 ML NEB NEB PRN ×2 (08:27→19:23)
[2022-12-27] MEDS ORDERED: Lactated Ringer's 1,000 ML IV SCH (10:45)
[2022-12-27 11:15] LABS: Actual Bicarbonate (HCO3a) 42.6 mEq/L (22-28); Base Excess (BEa) 15.9 mEq/L (-2.0 to +3.0); Calcium, Ionized (arterial) 1.03 mmol/L (1.12-1.30); Carboxyhemoglobin (COHb) 0.9 gm% (0.0-3.0); Hematocrit-ABG 25 % (36.0-47.0); Hemoglobin (Hb) 8.5 g/dL (12.0-16.0); Potassium - ABG Lab 3.88 mmol/L (3.70-5.30); pH, Arterial 7.413 (7.35-7.45)
[2022-12-27 11:22] LABS: ALV-art Gradient 47.265 mmHg (0-20); Puncture Site RRA
[2022-12-27] MEDS: cefTRIAXone\\ROCEPHIN 1 GM in Sodium Chloride 0.9% 100 ML IVPB SCH (18:16)
[2022-12-27] MEDS: Melatonin 3 MG TAB PO PRN (20:30)
[2022-12-28] MEDS: Vancomycin 1.5 GRAM/300 ML BAG 1.5 GM in Premix Bag 1 BAG IVPB SCH (00:37)
[2022-12-28] MEDS ORDERED: Melatonin 3 MG TAB PO SCH (01:15)
[2022-12-28] MEDS: Ipratropium/Albuterol 3 ML NEB NEB PRN ×3 (01:53→22:15)
[2022-12-28 03:59] LABS: #Basophils 0.1 thou/uL (0.0-0.2); #Eosinphils 0.5 thou/uL (0.0-0.7); #Neutrophils 4.6 thou/uL (1.40-6.50); %Eosinophils 5.7 % (0.0-10.0); %Lymphocytes 21.2 % (21.0-51.0); %Monocytes 12.8 % (0.0-10.0); %Neutrophils 57.6 % (42.0-75.0); Hemoglobin 7.7 g/dL (12.0-16.0); Mean Corpuscular HGB CONC 27.3 g/dL (32.0-36.0); Mean Corpuscular Hemoglobin 19.7 pg (27.0-31.0); Mean Corpuscular Volume 72.1 fl (78.0-98.0); Mean Platelet Volume 9.9 fL (7.4-10.4); Platelet Count 419 10x3/uL (130-400); RBC Distribution Width 25.6 % (11.5-14.5); Red Blood Cell (RBC) Count 3.91 mill/uL (4.20-5.40); White Blood Cell (WBC) Count 8.1 10x3/uL (4.8-10.8)
[2022-12-28 04:22] LABS: BUN (Urea Nitrogen) 17 mg/dL (9.8-20.1); Calc. Creatinine Clearance 136 mL/min (70-130); Calcium 8.4 mg/dL (7.8-10.44); Estimated GFR 88; Glucose 76 mg/dL (83-110)
[2022-12-28 04:28] LABS: Chloride 95 mmol/L (98-107); Sodium 141 mmol/L (136-145)
[2022-12-28] MEDS: Iron, Sodium Ferric Gluconate 125 MG in Sodium Chloride 0.9% 100 ML IVPB SCH (04:29)
[2022-12-28 04:31] LABS: Anion Gap 17 mmol/L (10-20); Carbon Dioxide 33 mmol/L (23-31)
[2022-12-28] MEDS: Mometasone 100 MCG/Formoterol 5 MCG 120 PUFF INHALER INH SCH ×2 (06:58→18:57)
[2022-12-28] MEDS: Carvedilol 6.25 MG TAB PO SCH ×2 (08:22→20:08)
[2022-12-28] MEDS: Famotidine/PF 20 mg/2ml Vial SLOW IVP SCH ×2 (08:22→20:09)
[2022-12-28] MEDS: cefTRIAXone\\ROCEPHIN 1 GM in Sodium Chloride 0.9% 100 ML IVPB SCH (17:49)
[2022-12-28] MEDS: Melatonin 3 MG TAB PO PRN (20:08)
[2022-12-28 23:52] LABS: Vancomycin, Trough 18.4 ug/mL
[2022-12-29] MEDS: Vancomycin 1.5 GRAM/300 ML BAG 1.5 GM in Premix Bag 1 BAG IVPB SCH (00:05)
[2022-12-29 04:15] LABS: #Basophils 0.1 thou/uL (0.0-0.2); #Eosinphils 0.5 thou/uL (0.0-0.7); #Neutrophils 4.7 thou/uL (1.40-6.50); %Basophils 0.9 % (0.0-1.0); %Eosinophils 6.1 % (0.0-10.0); %Monocytes 12.2 % (0.0-10.0); %Neutrophils 55.5 % (42.0-75.0); Hemoglobin 8.1 g/dL (12.0-16.0); Mean Corpuscular HGB CONC 27.5 g/dL (32.0-36.0); Mean Corpuscular Hemoglobin 20.2 pg (27.0-31.0); Mean Corpuscular Volume 73.6 fl (78.0-98.0); Mean Platelet Volume 10.3 fL (7.4-10.4); Platelet Count 419 10x3/uL (130-400); RBC Distribution Width 26.5 % (11.5-14.5); Red Blood Cell (RBC) Count 4.01 mill/uL (4.20-5.40); White Blood Cell (WBC) Count 8.5 10x3/uL (4.8-10.8)
[2022-12-29] MEDS: Iron, Sodium Ferric Gluconate 125 MG in Sodium Chloride 0.9% 100 ML IVPB SCH (04:24)
[2022-12-29 04:35] LABS: Anion Gap 13 mmol/L (10-20); BUN (Urea Nitrogen) 22 mg/dL (9.8-20.1); Calc. Creatinine Clearance 133 mL/min (70-130); Calcium 8.8 mg/dL (7.8-10.44); Carbon Dioxide 37 mmol/L (23-31); Chloride 95 mmol/L (98-107); Delete Auto Diff?? NO; Estimated GFR 88; Glucose 84 mg/dL (83-110); Potassium 3.9 mmol/L (3.5-5.1); Sodium 141 mmol/L (136-145)
[2022-12-29 05:20] LABS: Anisocytosis MODERATE=16-30 cells HPF (0-5); CellaVision Operator ID LAB.JMM; Elliptocytes SLIGHT = 2-5 cells HPF (0-1); Hypochromia SLIGHT = 6-15 cells HPF (0-5); Macrocytosis SLIGHT = 6-15 cells HPF (0-5); Platelet Adequacy Comment Platelets Normal; Polychromasia MODERATE = 3-4 cells HPF (0-2)
[2022-12-29] MEDS: Mometasone 100 MCG/Formoterol 5 MCG 120 PUFF INHALER INH SCH ×2 (07:05→18:37)
[2022-12-29] MEDS ORDERED: Furosemide 40 MG/4 ML VIAL SLOW IVP SCH ×2 (08:45→15:00)
[2022-12-29] MEDS: Carvedilol 6.25 MG TAB PO SCH ×2 (10:41→21:39)
[2022-12-29] MEDS: Famotidine/PF 20 mg/2ml Vial SLOW IVP SCH ×2 (10:41→21:39)
[2022-12-29] MEDS: Ipratropium/Albuterol 3 ML NEB NEB PRN (18:36)
[2022-12-29] MEDS: Cefdinir 300 MG CAP PO SCH (21:39)
[2022-12-29] MEDS: Melatonin 3 MG TAB PO PRN (21:39)
[2022-12-30] MEDS: Iron, Sodium Ferric Gluconate 125 MG in Sodium Chloride 0.9% 100 ML IVPB SCH (04:27)
[2022-12-30] MEDS: Furosemide 40 MG/4 ML VIAL SLOW IVP SCH ×2 (07:14→13:27)
[2022-12-30] MEDS: Ipratropium/Albuterol 3 ML NEB NEB PRN ×2 (07:35→18:35)
[2022-12-30] MEDS: Mometasone 100 MCG/Formoterol 5 MCG 120 PUFF INHALER INH SCH ×2 (07:37→18:37)
[2022-12-30 09:11] LABS: #Basophils 0.1 thou/uL (0.0-0.2); #Eosinphils 0.4 thou/uL (0.0-0.7); #Monocytes 0.9 thou/uL (0.11-0.59); #Neutrophils 4.8 thou/uL (1.40-6.50); %Basophils 0.9 % (0.0-1.0); %Eosinophils 4.6 % (0.0-10.0); %Lymphocytes 19.2 % (21.0-51.0); %Monocytes 11.3 % (0.0-10.0); %Neutrophils 63.3 % (42.0-75.0); Mean Corpuscular Hemoglobin 20.7 pg (27.0-31.0); Mean Corpuscular Volume 75.8 fl (78.0-98.0); Mean Platelet Volume 9.8 fL (7.4-10.4); Platelet Count 371 10x3/uL (130-400); RBC Distribution Width 27.6 % (11.5-14.5); Red Blood Cell (RBC) Count 4.34 mill/uL (4.20-5.40); White Blood Cell (WBC) Count 7.6 10x3/uL (4.8-10.8)
[2022-12-30 09:13] LABS: Mean Corpuscular HGB CONC 27.4 g/dL (32.0-36.0)
[2022-12-30 09:34] LABS: Anion Gap 16 mmol/L (10-20); BUN (Urea Nitrogen) 22 mg/dL (9.8-20.1); Calc. Creatinine Clearance 140 mL/min (70-130); Calcium 9.3 mg/dL (7.8-10.44); Carbon Dioxide 37 mmol/L (23-31); Chloride 92 mmol/L (98-107); Estimated GFR 90; Glucose 77 mg/dL (83-110); Potassium 3.9 mmol/L (3.5-5.1); Sodium 141 mmol/L (136-145)
[2022-12-30] MEDS: Carvedilol 6.25 MG TAB PO SCH ×2 (10:04→21:44)
[2022-12-30] MEDS: Famotidine/PF 20 mg/2ml Vial SLOW IVP SCH ×2 (10:05→21:44)
[2022-12-30] MEDS: Cefdinir 300 MG CAP PO SCH ×2 (10:05→21:44)
[2022-12-30 14:21] LABS: CO2 Tension 68.3 mmHg (35.0-45.0)
[2022-12-31 04:10] LABS: #Basophils 0.1 thou/uL (0.0-0.2); #Eosinphils 0.3 thou/uL (0.0-0.7); #Monocytes 0.9 thou/uL (0.11-0.59); #Neutrophils 4.2 thou/uL (1.40-6.50); %Basophils 0.7 % (0.0-1.0); %Eosinophils 4.3 % (0.0-10.0); %Lymphocytes 24.1 % (21.0-51.0); %Monocytes 12.2 % (0.0-10.0); Hemoglobin 8.5 g/dL (12.0-16.0); Mean Corpuscular HGB CONC 27.4 g/dL (32.0-36.0); Mean Corpuscular Hemoglobin 20.7 pg (27.0-31.0); Mean Corpuscular Volume 75.6 fl (78.0-98.0); Mean Platelet Volume 9.7 fL (7.4-10.4); Platelet Count 354 10x3/uL (130-400); RBC Distribution Width 27.7 % (11.5-14.5); White Blood Cell (WBC) Count 7.2 10x3/uL (4.8-10.8)
[2022-12-31 04:34] LABS: BUN (Urea Nitrogen) 29 mg/dL (9.8-20.1); Calc. Creatinine Clearance 110 mL/min (70-130); Calcium 9.3 mg/dL (7.8-10.44); Estimated GFR 76; Glucose 87 mg/dL (83-110)
[2022-12-31 04:43] LABS: Anion Gap 18 mmol/L (10-20); Carbon Dioxide 38 mmol/L (23-31); Chloride 89 mmol/L (98-107); Potassium 3.8 mmol/L (3.5-5.1); Sodium 141 mmol/L (136-145)
[2022-12-31] MEDS: Iron, Sodium Ferric Gluconate 125 MG in Sodium Chloride 0.9% 100 ML IVPB SCH (04:51)
[2022-12-31 07:01] LABS: Anisocytosis MODERATE=16-30 cells HPF (0-5); CellaVision Operator ID LAB.JMM; Hypochromia SLIGHT = 6-15 cells HPF (0-5); Macrocytosis SLIGHT = 6-15 cells HPF (0-5); Platelet Adequacy Comment Platelets Normal; Polychromasia SLIGHT = 2-3 cells HPF (0-2)
[2022-12-31] MEDS: Ipratropium/Albuterol 3 ML NEB NEB PRN ×2 (07:01→18:51)
[2022-12-31] MEDS: Mometasone 100 MCG/Formoterol 5 MCG 120 PUFF INHALER INH SCH ×2 (07:02→18:52)
[2022-12-31] MEDS: Cefdinir 300 MG CAP PO SCH (09:10)
[2022-12-31] MEDS: Carvedilol 6.25 MG TAB PO SCH (09:10)
[2022-12-31] MEDS: Famotidine/PF 20 mg/2ml Vial SLOW IVP SCH ×2 (09:10→21:08)
[2022-12-31] MEDS ORDERED: Amiodarone 200 MG TAB PO SCH (09:30)
[2022-12-31] MEDS ORDERED: Empagliflozin 10 MG TAB PO SCH (09:30)
[2022-12-31] MEDS ORDERED: Potassium Chloride 20 MEQ TAB PO SCH (12:00)
[2022-12-31] MEDS: Furosemide 20 MG/2 ML VIAL SLOW IVP SCH (14:06)
[2022-12-31] MEDS: Amiodarone 200 MG TAB PO SCH ×2 (14:06→21:08)
[2022-12-31] MEDS: Carvedilol 3.125 MG TAB PO SCH (21:08)
[2022-12-31] MEDS: Melatonin 3 MG TAB PO PRN (21:08)
[2023-01-01 04:13] LABS: #Basophils 0.1 thou/uL (0.0-0.2); #Eosinphils 0.2 thou/uL (0.0-0.7); #Monocytes 0.8 thou/uL (0.11-0.59); #Neutrophils 4.1 thou/uL (1.40-6.50); %Basophils 0.7 % (0.0-1.0); %Eosinophils 3.2 % (0.0-10.0); %Lymphocytes 27.1 % (21.0-51.0); %Monocytes 11.5 % (0.0-10.0); %Neutrophils 57.1 % (42.0-75.0); Hemoglobin 8.4 g/dL (12.0-16.0); Mean Corpuscular HGB CONC 27.4 g/dL (32.0-36.0); Mean Corpuscular Hemoglobin 20.8 pg (27.0-31.0); Mean Corpuscular Volume 76.2 fl (78.0-98.0); Mean Platelet Volume 10.1 fL (7.4-10.4); Platelet Count 358 10x3/uL (130-400); RBC Distribution Width 28.6 % (11.5-14.5); Red Blood Cell (RBC) Count 4.03 mill/uL (4.20-5.40); White Blood Cell (WBC) Count 7.2 10x3/uL (4.8-10.8)
[2023-01-01 04:35] LABS: BUN (Urea Nitrogen) 41 mg/dL (9.8-20.1); Calc. Creatinine Clearance 105 mL/min (70-130); Calcium 9.2 mg/dL (7.8-10.44); Estimated GFR 74; Glucose 82 mg/dL (83-110)
[2023-01-01 04:50] LABS: Chloride 93 mmol/L (98-107); Potassium 4.5 mmol/L (3.5-5.1); Sodium 141 mmol/L (136-145)
[2023-01-01 04:59] LABS: Carbon Dioxide 32 mmol/L (23-31)
[2023-01-01 05:42] LABS: Anion Gap 21 mmol/L (10-20)
[2023-01-01] MEDS: Furosemide 20 MG/2 ML VIAL SLOW IVP SCH ×2 (06:34→16:15)
[2023-01-01] MEDS: Mometasone 100 MCG/Formoterol 5 MCG 120 PUFF INHALER INH SCH ×2 (06:58→19:15)
[2023-01-01] MEDS: Famotidine/PF 20 mg/2ml Vial SLOW IVP SCH ×2 (10:03→20:54)
[2023-01-01] MEDS: Carvedilol 3.125 MG TAB PO SCH ×2 (10:03→20:53)
[2023-01-01] MEDS: Empagliflozin 10 MG TAB PO SCH (10:03)
[2023-01-01] MEDS: Enoxaparin 120 MG/0.8 ML SYRINGE SC SCH ×2 (10:03→20:53)
[2023-01-01] MEDS: Ipratropium/Albuterol 3 ML NEB NEB PRN (19:17)
[2023-01-01] MEDS: Melatonin 3 MG TAB PO PRN (20:53)
[2023-01-01] MEDS ORDERED: Apixaban 5 MG TAB PO SCH (21:00)
[2023-01-02 04:51] LABS: #Basophils 0.1 thou/uL (0.0-0.2); #Eosinphils 0.2 thou/uL (0.0-0.7); #Monocytes 0.8 thou/uL (0.11-0.59); #Neutrophils 4.1 thou/uL (1.40-6.50); %Basophils 0.9 % (0.0-1.0); %Eosinophils 3.3 % (0.0-10.0); %Lymphocytes 25.7 % (21.0-51.0); %Monocytes 11.3 % (0.0-10.0); %Neutrophils 58.5 % (42.0-75.0); Hemoglobin 8.4 g/dL (12.0-16.0); Mean Corpuscular HGB CONC 27.4 g/dL (32.0-36.0); Mean Corpuscular Hemoglobin 20.9 pg (27.0-31.0); Mean Corpuscular Volume 76.4 fl (78.0-98.0); Mean Platelet Volume 10.3 fL (7.4-10.4); Platelet Count 321 10x3/uL (130-400); RBC Distribution Width 29.4 % (11.5-14.5); Red Blood Cell (RBC) Count 4.02 mill/uL (4.20-5.40)
[2023-01-02 05:15] LABS: BUN (Urea Nitrogen) 36 mg/dL (9.8-20.1); Calc. Creatinine Clearance 112 mL/min (70-130); Calcium 9.4 mg/dL (7.8-10.44); Estimated GFR 80; Glucose 75 mg/dL (83-110)
[2023-01-02 05:26] LABS: Chloride 89 mmol/L (98-107); Sodium 141 mmol/L (136-145)
[2023-01-02 05:28] LABS: Carbon Dioxide 39 mmol/L (23-31)
[2023-01-02 05:29] LABS: Anion Gap 17 mmol/L (10-20)
[2023-01-02] MEDS: Furosemide 20 MG/2 ML VIAL SLOW IVP SCH (05:33)
[2023-01-02 06:18] LABS: Anisocytosis SLIGHT = 6-15 cells HPF (0-5); CellaVision Operator ID LAB.JMM; Hypochromia SLIGHT = 6-15 cells HPF (0-5); Macrocytosis SLIGHT = 6-15 cells HPF (0-5); Platelet Adequacy Comment Platelets Decreased; Polychromasia SLIGHT = 2-3 cells HPF (0-2); Stomatocytes SLIGHT = 2-5 cells HPF (0-1)
[2023-01-02] MEDS: Mometasone 100 MCG/Formoterol 5 MCG 120 PUFF INHALER INH SCH ×2 (07:21→18:49)
[2023-01-02] MEDS: Carvedilol 3.125 MG TAB PO SCH ×2 (09:21→20:30)
[2023-01-02] MEDS: Empagliflozin 10 MG TAB PO SCH (09:21)
[2023-01-02] MEDS: Enoxaparin 120 MG/0.8 ML SYRINGE SC SCH ×2 (09:22→20:29)
[2023-01-02] MEDS: Famotidine/PF 20 mg/2ml Vial SLOW IVP SCH ×2 (09:23→20:29)
[2023-01-02] MEDS: Flecainide 50 MG TAB PO SCH ×2 (09:24→20:30)
[2023-01-02] MEDS ORDERED: PROPOFOL 0 ML ONE (11:26)
[2023-01-02] MEDS ORDERED: PROPOFOL 20 ML ONE (11:31)
[2023-01-02] MEDS ORDERED: Ketamine 50 MG/ML (10ML VIAL) ONE (11:38)
[2023-01-02] MEDS ORDERED: Lidocaine 1% PF 5 ML VIAL ONE (11:45)
[2023-01-02] MEDS ORDERED: PROPOFOL 200 MG/20 ML VIAL ONE (11:45)
[2023-01-02] MEDS ORDERED: PHENYLEPHRINE-NS 100 MCG/ML 10 ML SYRINGE ONE (11:45)
[2023-01-02] MEDS: Melatonin 3 MG TAB PO PRN (20:31)
[2023-01-03 04:35] LABS: #Basophils 0.1 thou/uL (0.0-0.2); #Eosinphils 0.2 thou/uL (0.0-0.7); #Monocytes 0.8 thou/uL (0.11-0.59); %Basophils 0.8 % (0.0-1.0); %Eosinophils 2.4 % (0.0-10.0); %Lymphocytes 21.6 % (21.0-51.0); %Monocytes 10.7 % (0.0-10.0); Hemoglobin 8.3 g/dL (12.0-16.0); Mean Corpuscular HGB CONC 27.1 g/dL (32.0-36.0); Mean Corpuscular Hemoglobin 20.9 pg (27.0-31.0); Mean Corpuscular Volume 77.1 fl (78.0-98.0); Mean Platelet Volume 10.2 fL (7.4-10.4); Platelet Count 279 10x3/uL (130-400); Red Blood Cell (RBC) Count 3.97 mill/uL (4.20-5.40); White Blood Cell (WBC) Count 7.9 10x3/uL (4.8-10.8)
[2023-01-03 04:52] LABS: RBC Distribution Width 30.2 % (11.5-14.5)
[2023-01-03 04:56] LABS: BUN (Urea Nitrogen) 40 mg/dL (9.8-20.1); Calc. Creatinine Clearance 102 mL/min (70-130); Estimated GFR 72; Glucose 86 mg/dL (83-110)
[2023-01-03 05:07] LABS: Anion Gap 14 mmol/L (10-20); Carbon Dioxide 40 mmol/L (23-31); Chloride 92 mmol/L (98-107); Potassium 4.1 mmol/L (3.5-5.1); Sodium 142 mmol/L (136-145)
[2023-01-03] MEDS ORDERED: Carvedilol 3.125 MG TAB PO SCH (06:54)
[2023-01-03] MEDS: Mometasone 100 MCG/Formoterol 5 MCG 120 PUFF INHALER INH SCH (07:24)
[2023-01-03 08:28] VITALS: BMI 44.2
[2023-01-03] MEDS ORDERED: Carvedilol 6.25 MG TAB PO SCH (09:00)
[2023-01-03] MEDS ORDERED: Apixaban 5 MG TAB PO SCH (09:00)
[2023-01-03] MEDS ORDERED: Furosemide 20 MG TAB PO SCH (09:00)
[2023-01-03] MEDS: Famotidine/PF 20 mg/2ml Vial SLOW IVP SCH (09:31)
[2023-01-03] MEDS: Flecainide 50 MG TAB PO SCH (09:32)
[2023-01-03] MEDS: Empagliflozin 10 MG TAB PO SCH (09:32)
[2023-01-03 14:18] VITALS: TEMP 98.8
[2023-01-03 14:22] VITALS: BP 135/64
== END 2023-01-03 14:30 | DRG 291 ==
LOC: ERS 20:06 → ERHOLD 22:36 → 2NO 12-25 02:22 → OBSVTOIN 12-25 09:18 → CCU 12-27 11:29 → IMCU/EMU 12-27 13:11 → 2NO 01-01 06:15
PROVIDERS: ADMIT Hospitalist; ATTEND Internal Medicine
PROC: 4A033R1 Measurement of Arterial Saturation, Peripheral, Percutaneous Approach (ICD-10-PCS; 2022-12-26)
PROC: B246ZZ4 Ultrasonography of Right and Left Heart, Transesophageal (ICD-10-PCS; principal; 2023-01-02)
PROC: 5A2204Z Restoration of Cardiac Rhythm, Single (ICD-10-PCS; 2023-01-02)
DX: I11.0 Hypertensive heart disease with heart failure (principal); G93.41 Metabolic encephalopathy; I50.33 Acute on chronic diastolic (congestive) heart failure; J96.01 Acute respiratory failure with hypoxia; J96.02 Acute respiratory failure with hypercapnia; E66.2 Morbid (severe) obesity with alveolar hypoventilation; Z68.41 Body mass index [BMI] 40.0-44.9, adult; E87.3 Alkalosis; E78.5 Hyperlipidemia, unspecified; J45.909 Unspecified asthma, uncomplicated; I48.0 Paroxysmal atrial fibrillation; D50.9 Iron deficiency anemia, unspecified; I27.20 Pulmonary hypertension, unspecified; F41.9 Anxiety disorder, unspecified; I08.1 Rheumatic disorders of both mitral and tricuspid valves; Z79.51 Long term (current) use of inhaled steroids; Z79.01 Long term (current) use of anticoagulants; Z79.899 Other long term (current) drug therapy; Z90.710 Acquired absence of both cervix and uterus; Z98.890 Other specified postprocedural states
CPT/HCPCS: 36415; 36416; 36600; 70450; 71045; 80048; 80053; 80202; 81001; 82274; 82728; 82805; 83880; 84484; 85025; 85610; 85730; 86850; 86900; 86901; 87040; 87081; 92960; 93005; 93010; 93306; 93312; 94640; 96365; 96367; 96375; 96376; 97139; G0378; J0692; J0696; J1650; J1940; J2704; J2916; J3370; J3370-JW; J3490; J7120; J7620; S0028

== ENCOUNTER 2023-01-06 04:14 | Emergency (ER) | payer MEDICARE, BC ==
[2023-01-06 06:47] LABS: #Basophils 0.1 thou/uL (0.0-0.2); #Eosinphils 0.2 thou/uL (0.0-0.7); #Monocytes 0.8 thou/uL (0.11-0.59); #Neutrophils 5.7 thou/uL (1.40-6.50); %Eosinophils 2.6 % (0.0-10.0); %Lymphocytes 16.7 % (21.0-51.0); %Monocytes 9.6 % (0.0-10.0); %Neutrophils 69.7 % (42.0-75.0); Hemoglobin 9.8 g/dL (12.0-16.0); Mean Corpuscular HGB CONC 27.5 g/dL (32.0-36.0); Mean Corpuscular Hemoglobin 21.6 pg (27.0-31.0); Mean Corpuscular Volume 78.6 fl (78.0-98.0); Mean Platelet Volume 10.6 fL (7.4-10.4); Platelet Count 289 10x3/uL (130-400); RBC Distribution Width 31.7 % (11.5-14.5); Red Blood Cell (RBC) Count 4.54 mill/uL (4.20-5.40); White Blood Cell (WBC) Count 8.1 10x3/uL (4.8-10.8)
[2023-01-06 07:28] LABS: ALT (SGPT) 18 U/L (8-55); AST (SGOT) 23 U/L (5-34); Albumin 3.3 g/dL (3.4-4.8); Alkaline Phosphatase 88 U/L (40-110); BUN (Urea Nitrogen) 24 mg/dL (9.8-20.1); Bilirubin, Total 0.6 mg/dL (0.2-1.2); Calc. Creatinine Clearance 0 mL/min (70-130); Calcium 8.8 mg/dL (7.8-10.44); Estimated GFR 64; Globulin 4.1 g/dL (2.4-3.5); Glucose 99 mg/dL (83-110); Protein, Total 7.4 g/dL (5.8-8.1)
[2023-01-06 07:37] LABS: Anion Gap 23 mmol/L (10-20); Carbon Dioxide 32 mmol/L (23-31); Chloride 92 mmol/L (98-107); Potassium 3.6 mmol/L (3.5-5.1); Sodium 143 mmol/L (136-145)
[2023-01-06 07:41] LABS: CellaVision Operator ID LAB.GE; Hypochromia SLIGHT = 6-15 cells HPF (0-5); Large Platelets 10.6 % (0-5); Microcytosis SLIGHT = 6-15 cells HPF (0-5); Platelet Adequacy Comment Platelets Normal; Poikilocytosis SLIGHT = 6-15 cells HPF (0-5); Polychromasia MODERATE = 3-4 cells HPF (0-2)
== END 2023-01-06 08:12 | disposition home or self-care (01) ==
LOC: ERS 04:14
DX: K56.41 Fecal impaction (principal); I10 Essential (primary) hypertension; E78.5 Hyperlipidemia, unspecified
CPT/HCPCS: 36415; 71045; 80053; 83880; 84484; 85025; 93005; 94760

== ENCOUNTER 2023-01-10 04:25 | Inpatient (IN) | payer MEDICARE, BC ==
[2023-01-10 05:00] LABS: #Basophils 0.1 thou/uL (0.0-0.2); #Eosinphils 0.2 thou/uL (0.0-0.7); #Monocytes 0.5 thou/uL (0.11-0.59); #Neutrophils 2.6 thou/uL (1.40-6.50); %Eosinophils 4.8 % (0.0-10.0); %Lymphocytes 28.9 % (21.0-51.0); %Monocytes 10.7 % (0.0-10.0); %Neutrophils 54.4 % (42.0-75.0); Hematocrit 34.8 % (36.0-47.0); Mean Corpuscular HGB CONC 28.7 g/dL (32.0-36.0); Mean Corpuscular Hemoglobin 22.1 pg (27.0-31.0); Platelet Count 306 10x3/uL (130-400); Red Blood Cell (RBC) Count 4.52 mill/uL (4.20-5.40); White Blood Cell (WBC) Count 4.8 10x3/uL (4.8-10.8)
[2023-01-10 05:22] LABS: ALT (SGPT) 12 U/L (8-55); AST (SGOT) 16 U/L (5-34); Albumin 3.1 g/dL (3.4-4.8); Alkaline Phosphatase 82 U/L (40-110); Anion Gap 14 mmol/L (10-20); BUN (Urea Nitrogen) 13 mg/dL (9.8-20.1); Bilirubin, Total 0.6 mg/dL (0.2-1.2); Calc. Creatinine Clearance 0 mL/min (70-130); Calcium 8.4 mg/dL (7.8-10.44); Carbon Dioxide 35 mmol/L (23-31); Chloride 92 mmol/L (98-107); Estimated GFR 73; Globulin 3.6 g/dL (2.4-3.5); Glucose 97 mg/dL (83-110); Potassium 3.2 mmol/L (3.5-5.1); Protein, Total 6.7 g/dL (5.8-8.1); Sodium 138 mmol/L (136-145)
[2023-01-10] MEDS ORDERED: Potassium Chloride 20 MEQ TAB ONE (05:34)
[2023-01-10] MEDS ORDERED: Pot Chloride/Pot Bicarb/Cit Ac 25 mEq Effervescent Tablet ONE (05:42)
[2023-01-10 05:50] LABS: Anisocytosis MODERATE=16-30 cells HPF (0-5); CellaVision Operator ID lab.abc; Hypochromia SLIGHT = 6-15 cells HPF (0-5); Microcytosis SLIGHT = 6-15 cells HPF (0-5); Platelet Adequacy Comment Platelets Normal; Polychromasia SLIGHT = 2-3 cells HPF (0-2)
[2023-01-10] MEDS ORDERED: Furosemide 40 MG/4 ML VIAL ONE (06:14)
[2023-01-10] MEDS ORDERED: Electrolyte Replacement Protocol 1 EACH FS SCH ×2 (08:30→11:45)
[2023-01-10 08:36] LABS: Troponin I 0.035 ng/mL (< 0.028)
[2023-01-10] MEDS ORDERED: Acetaminophen 325 MG TAB PO PRN (11:28)
[2023-01-10 11:31] LABS: Troponin I 0.036 ng/mL (< 0.028)
[2023-01-10] MEDS ORDERED: Docusate 100 MG CAP PO PRN (11:32)
[2023-01-10] MEDS ORDERED: Nystatin Powder 15 GM BOT TOP PRN (11:32)
[2023-01-10 11:38] LABS: Anion Gap 15 mmol/L (10-20); BUN (Urea Nitrogen) 15 mg/dL (9.8-20.1); Calc. Creatinine Clearance 0 mL/min (70-130); Calcium 8.3 mg/dL (7.8-10.44); Carbon Dioxide 37 mmol/L (23-31); Chloride 93 mmol/L (98-107); Estimated GFR 72; Glucose 99 mg/dL (83-110); Magnesium 2.1 mg/dL (1.6-2.6); Phosphorus 3.3 mg/dL (2.3-4.7); Potassium 3.6 mmol/L (3.5-5.1); Sodium 141 mmol/L (136-145)
[2023-01-10] MEDS ORDERED: Polyethylene Glycol 3350 17 GM Packet PO PRN (11:40)
[2023-01-10] MEDS ORDERED: Ipratropium/Albuterol 3 ML NEB NEB PRN (11:40)
[2023-01-10] MEDS: Metoclopramide HCl 10 MG/2 ML VIAL IVP SCH ×2 (15:40→20:59)
[2023-01-10] MEDS: cefTRIAXone\\ROCEPHIN 1 GM in Sodium Chloride 0.9% 100 ML IVPB SCH (15:40)
[2023-01-10] MEDS: Spironolactone 25 MG TAB PO SCH (15:44)
[2023-01-10] MEDS ORDERED: Metoclopramide HCl 10 MG/2 ML VIAL ONE (16:11)
[2023-01-10] MEDS ORDERED: cefTRIAXone (ROCEPHIN) 1 GM VIAL ONE (16:11)
[2023-01-10] MEDS: Flecainide 50 MG TAB PO SCH (20:57)
[2023-01-10] MEDS: Apixaban 5 MG TAB PO SCH (20:57)
[2023-01-10] MEDS: Carvedilol 6.25 MG TAB PO SCH (20:57)
[2023-01-10] MEDS: Melatonin 3 MG TAB PO PRN (20:57)
[2023-01-10] MEDS ORDERED: Flecainide 50 MG TAB PO SCH (21:00)
[2023-01-11] MEDS: Metoclopramide HCl 10 MG/2 ML VIAL IVP SCH (05:44)
[2023-01-11] MEDS: Apixaban 5 MG TAB PO SCH ×2 (08:59→21:26)
[2023-01-11] MEDS: Carvedilol 6.25 MG TAB PO SCH ×2 (08:59→21:22)
[2023-01-11] MEDS: Spironolactone 25 MG TAB PO SCH (08:59)
[2023-01-11] MEDS: Empagliflozin 10 MG TAB PO SCH (09:00)
[2023-01-11] MEDS: Flecainide 50 MG TAB PO SCH ×2 (09:00→21:21)
[2023-01-11] MEDS: Furosemide 40 MG/4 ML VIAL SLOW IVP SCH (09:00)
[2023-01-11] MEDS: cefTRIAXone\\ROCEPHIN 1 GM in Sodium Chloride 0.9% 100 ML IVPB SCH (12:10)
[2023-01-11] MEDS: Senokot S 8.6-50 MG TAB PO SCH (21:21)
[2023-01-11] MEDS: Melatonin 3 MG TAB PO PRN (21:21)
[2023-01-11 23:24] LABS: Bacteria/HPF None Seen HPF (None Seen); Bilirubin Negative (Negative); Blood, Urine 3+ (Negative); CAUTI Indications for Culture Acute Hematuria; Clarity Turbid (Clear); Glucose, Urine (Dipstick) 500 mg/dL (Negative); Ketone, Urine Negative (Negative); Leukocyte 75 Leu/uL (Negative); Nitrite Negative (Negative); Protein, Urine (Dipstick) 20 mg/dL (Neg-Trace); RBC/HPF Greater than 50 HPF (0-3); Specific Gravity, Urine 1.008 (1.002-1.036); Urobilinogen Normal mg/dL (Less than 2); pH, Urine 7.5 (5.0-9.0)
[2023-01-11 23:26] LABS: Urine Culture Reflex No No
[2023-01-12 07:48] LABS: #Eosinphils 0.3 thou/uL (0.0-0.7); #Monocytes 0.4 thou/uL (0.11-0.59); #Neutrophils 3.2 thou/uL (1.40-6.50); %Basophils 0.8 % (0.0-1.0); %Eosinophils 5.9 % (0.0-10.0); %Lymphocytes 20.4 % (21.0-51.0); %Monocytes 8.5 % (0.0-10.0); %Neutrophils 64.2 % (42.0-75.0); Hematocrit 36.5 % (36.0-47.0); Hemoglobin 10.2 g/dL (12.0-16.0); Mean Corpuscular Hemoglobin 22.2 pg (27.0-31.0); Mean Corpuscular Volume 79.5 fl (78.0-98.0); Mean Platelet Volume 9.7 fL (7.4-10.4); Platelet Count 283 10x3/uL (130-400); RBC Distribution Width 30.7 % (11.5-14.5); Red Blood Cell (RBC) Count 4.59 mill/uL (4.20-5.40)
[2023-01-12 07:49] LABS: Mean Corpuscular HGB CONC 27.9 g/dL (32.0-36.0)
[2023-01-12 08:07] LABS: Anion Gap 15 mmol/L (10-20); BUN (Urea Nitrogen) 13 mg/dL (9.8-20.1); Calc. Creatinine Clearance 109 mL/min (70-130); Calcium 8.7 mg/dL (7.8-10.44); Carbon Dioxide 34 mmol/L (23-31); Chloride 93 mmol/L (98-107); Estimated GFR 85; Glucose 71 mg/dL (83-110); Potassium 3.2 mmol/L (3.5-5.1); Sodium 139 mmol/L (136-145)
[2023-01-12] MEDS ORDERED: Potassium Chloride 20 MEQ TAB PO SCH ×2 (09:00→17:00)
[2023-01-12] MEDS: Spironolactone 25 MG TAB PO SCH (09:11)
[2023-01-12] MEDS: Ferrous Sulfate 325 MG TAB PO SCH (09:11)
[2023-01-12] MEDS: Apixaban 5 MG TAB PO SCH (09:11)
[2023-01-12] MEDS: Senokot S 8.6-50 MG TAB PO SCH ×2 (09:11→21:29)
[2023-01-12] MEDS: Furosemide 40 MG/4 ML VIAL SLOW IVP SCH (09:12)
[2023-01-12] MEDS: Multivitamin W/ Minerals 1 TAB PO SCH (09:12)
[2023-01-12] MEDS: Carvedilol 6.25 MG TAB PO SCH ×2 (09:12→21:29)
[2023-01-12] MEDS: Cyanocobalamin (Vitamin B-12) 1,000 MCG TAB PO SCH (09:12)
[2023-01-12] MEDS: Polyethylene Glycol 3350 17 GM Packet PO SCH (09:12)
[2023-01-12] MEDS: Folic Acid 1 MG TAB PO SCH (09:12)
[2023-01-12] MEDS: Empagliflozin 10 MG TAB PO SCH (09:12)
[2023-01-12] MEDS: Flecainide 50 MG TAB PO SCH ×2 (09:12→21:30)
[2023-01-12] MEDS: cefTRIAXone\\ROCEPHIN 1 GM in Sodium Chloride 0.9% 100 ML IVPB SCH (12:48)
[2023-01-12] MEDS: Melatonin 3 MG TAB PO PRN (21:29)
[2023-01-13 05:40] LABS: Anion Gap 16 mmol/L (10-20); BUN (Urea Nitrogen) 14 mg/dL (9.8-20.1); Calc. Creatinine Clearance 106 mL/min (70-130); Calcium 8.8 mg/dL (7.8-10.44); Carbon Dioxide 32 mmol/L (23-31); Chloride 96 mmol/L (98-107); Estimated GFR 83; Glucose 76 mg/dL (83-110); Potassium 4.3 mmol/L (3.5-5.1); Sodium 140 mmol/L (136-145)
[2023-01-13] MEDS: Senokot S 8.6-50 MG TAB PO SCH ×2 (08:44→20:44)
[2023-01-13] MEDS: Ferrous Sulfate 325 MG TAB PO SCH (08:44)
[2023-01-13] MEDS: Spironolactone 25 MG TAB PO SCH (08:44)
[2023-01-13] MEDS: Polyethylene Glycol 3350 17 GM Packet PO SCH (08:44)
[2023-01-13] MEDS: Folic Acid 1 MG TAB PO SCH (08:44)
[2023-01-13] MEDS: Multivitamin W/ Minerals 1 TAB PO SCH (08:45)
[2023-01-13] MEDS: Empagliflozin 10 MG TAB PO SCH (08:45)
[2023-01-13] MEDS: Furosemide 40 MG/4 ML VIAL SLOW IVP SCH (08:45)
[2023-01-13] MEDS: Carvedilol 6.25 MG TAB PO SCH ×2 (08:45→20:44)
[2023-01-13] MEDS: Cyanocobalamin (Vitamin B-12) 1,000 MCG TAB PO SCH (08:45)
[2023-01-13] MEDS: Flecainide 50 MG TAB PO SCH ×2 (08:45→20:44)
[2023-01-13 09:03] LABS: Cardiac Risk 3.3 (Less than 4.5)
[2023-01-13] MEDS: cefTRIAXone\\ROCEPHIN 1 GM in Sodium Chloride 0.9% 100 ML IVPB SCH (12:56)
[2023-01-13] MEDS: Apixaban 5 MG TAB PO SCH (20:44)
[2023-01-13] MEDS: Melatonin 3 MG TAB PO PRN (21:08)
[2023-01-14] MEDS: Empagliflozin 10 MG TAB PO SCH (08:33)
[2023-01-14] MEDS: Senokot S 8.6-50 MG TAB PO SCH ×2 (08:33→20:29)
[2023-01-14] MEDS: Spironolactone 25 MG TAB PO SCH (08:33)
[2023-01-14] MEDS: Multivitamin W/ Minerals 1 TAB PO SCH (08:33)
[2023-01-14] MEDS: Ferrous Sulfate 325 MG TAB PO SCH (08:33)
[2023-01-14] MEDS: Flecainide 50 MG TAB PO SCH ×2 (08:33→20:29)
[2023-01-14] MEDS: Furosemide 40 MG TAB PO SCH (08:33)
[2023-01-14] MEDS: Folic Acid 1 MG TAB PO SCH (08:34)
[2023-01-14] MEDS: Carvedilol 6.25 MG TAB PO SCH ×2 (08:34→20:29)
[2023-01-14] MEDS: Apixaban 5 MG TAB PO SCH ×2 (08:34→20:29)
[2023-01-14] MEDS: Cyanocobalamin (Vitamin B-12) 1,000 MCG TAB PO SCH (08:34)
[2023-01-14] MEDS: Polyethylene Glycol 3350 17 GM Packet PO SCH (08:34)
[2023-01-14] MEDS: cefTRIAXone\\ROCEPHIN 1 GM in Sodium Chloride 0.9% 100 ML IVPB SCH (12:35)
[2023-01-14] MEDS: Melatonin 3 MG TAB PO PRN (20:36)
[2023-01-15] MEDS: Furosemide 40 MG TAB PO SCH (05:59)
[2023-01-15] MEDS: Multivitamin W/ Minerals 1 TAB PO SCH (08:14)
[2023-01-15] MEDS: Polyethylene Glycol 3350 17 GM Packet PO SCH (08:14)
[2023-01-15] MEDS: Senokot S 8.6-50 MG TAB PO SCH ×2 (08:15→20:59)
[2023-01-15] MEDS: Carvedilol 6.25 MG TAB PO SCH ×2 (08:15→20:59)
[2023-01-15] MEDS: Folic Acid 1 MG TAB PO SCH (08:15)
[2023-01-15] MEDS: Empagliflozin 10 MG TAB PO SCH (08:15)
[2023-01-15] MEDS: Ferrous Sulfate 325 MG TAB PO SCH (08:15)
[2023-01-15] MEDS: Flecainide 50 MG TAB PO SCH ×2 (08:15→20:59)
[2023-01-15] MEDS: Spironolactone 25 MG TAB PO SCH (08:15)
[2023-01-15] MEDS: Apixaban 5 MG TAB PO SCH ×2 (08:16→20:59)
[2023-01-15] MEDS: Cyanocobalamin (Vitamin B-12) 1,000 MCG TAB PO SCH (08:16)
[2023-01-15 14:53] VITALS: BMI 43.2
[2023-01-15] MEDS: Melatonin 3 MG TAB PO PRN (20:59)
[2023-01-16] MEDS: Furosemide 40 MG TAB PO SCH (06:02)
[2023-01-16] MEDS: Polyethylene Glycol 3350 17 GM Packet PO SCH (11:44)
[2023-01-16] MEDS: Spironolactone 25 MG TAB PO SCH (11:47)
[2023-01-16] MEDS: Ferrous Sulfate 325 MG TAB PO SCH (11:48)
[2023-01-16] MEDS: Flecainide 50 MG TAB PO SCH (11:49)
[2023-01-16] MEDS: Carvedilol 6.25 MG TAB PO SCH (11:49)
[2023-01-16] MEDS: Folic Acid 1 MG TAB PO SCH (11:49)
[2023-01-16] MEDS: Multivitamin W/ Minerals 1 TAB PO SCH (11:49)
[2023-01-16] MEDS: Cyanocobalamin (Vitamin B-12) 1,000 MCG TAB PO SCH (11:49)
[2023-01-16] MEDS: Empagliflozin 10 MG TAB PO SCH (11:50)
[2023-01-16] MEDS: Apixaban 5 MG TAB PO SCH (11:51)
[2023-01-16] MEDS: Senokot S 8.6-50 MG TAB PO SCH (11:52)
[2023-01-16 17:11] VITALS: BP 136/63; TEMP 97.8
== END 2023-01-16 17:15 | DRG 291 ==
LOC: SUATTDRO 04:25 → ERS 04:25 → ERHOLD 06:51 → OBSVTOIN 11:35 → 2SE 17:53
PROVIDERS: ADMIT Internal Medicine; ATTEND Internal Medicine
DX: I11.0 Hypertensive heart disease with heart failure (principal); I50.33 Acute on chronic diastolic (congestive) heart failure; J96.02 Acute respiratory failure with hypercapnia; J96.21 Acute and chronic respiratory failure with hypoxia; L03.116 Cellulitis of left lower limb; Z68.41 Body mass index [BMI] 40.0-44.9, adult; L97.429 Non-pressure chronic ulcer of left heel and midfoot with unspecified severity; E66.2 Morbid (severe) obesity with alveolar hypoventilation; I87.393 Chronic venous hypertension (idiopathic) with other complications of bilateral lower extremity; E78.5 Hyperlipidemia, unspecified; I48.0 Paroxysmal atrial fibrillation; F41.9 Anxiety disorder, unspecified; I27.20 Pulmonary hypertension, unspecified; I08.1 Rheumatic disorders of both mitral and tricuspid valves; E87.6 Hypokalemia; D50.9 Iron deficiency anemia, unspecified; J44.9 Chronic obstructive pulmonary disease, unspecified; D63.8 Anemia in other chronic diseases classified elsewhere; E11.621 Type 2 diabetes mellitus with foot ulcer; Z79.51 Long term (current) use of inhaled steroids; Z79.899 Other long term (current) drug therapy; Z90.710 Acquired absence of both cervix and uterus; Z98.890 Other specified postprocedural states; Z99.3 Dependence on wheelchair; Z79.01 Long term (current) use of anticoagulants; R53.81 Other malaise
CPT/HCPCS: 36415; 36416; 71045; 80048; 80053; 80061; 81001; 83735; 83880; 84100; 84484; 85025; 87040; 93005; 94760; 96374; 97139; J0696; J1940; J2765; J3490

== ENCOUNTER 2023-02-19 21:04 | Inpatient (IN) | payer MEDICARE, BC ==
[2023-02-19] MEDS ORDERED: NOREPINEPHRINE 8 MG/250 ML-D5W 250 ML ONE (21:27)
[2023-02-19 21:41] LABS: #Basophils 0.1 thou/uL (0.0-0.2); #Monocytes 0.9 thou/uL (0.11-0.59); #Neutrophils 18.6 thou/uL (1.40-6.50); %Basophils 0.2 % (0.0-1.0); %Eosinophils 0.2 % (0.0-10.0); %Lymphocytes 3.6 % (21.0-51.0); %Monocytes 4.2 % (0.0-10.0); %Neutrophils 91.1 % (42.0-75.0); Hematocrit 34.1 % (36.0-47.0); Mean Corpuscular HGB CONC 32.3 g/dL (32.0-36.0); Mean Corpuscular Hemoglobin 24.2 pg (27.0-31.0); Mean Corpuscular Volume 74.9 fl (78.0-98.0); Platelet Count 149 10x3/uL (130-400); RBC Distribution Width 28.2 % (11.5-14.5); Red Blood Cell (RBC) Count 4.55 mill/uL (4.20-5.40); White Blood Cell (WBC) Count 20.5 10x3/uL (4.8-10.8)
[2023-02-19 22:01] LABS: ALT (SGPT) 20 U/L (8-55); AST (SGOT) 25 U/L (5-34); Albumin 2.7 g/dL (3.4-4.8); Alkaline Phosphatase 138 U/L (40-110); Anion Gap 17 mmol/L (10-20); BUN (Urea Nitrogen) 125 mg/dL (9.8-20.1); Bilirubin, Total 0.3 mg/dL (0.2-1.2); Calc. Creatinine Clearance 0 mL/min (70-130); Calcium 8.8 mg/dL (7.8-10.44); Carbon Dioxide 21 mmol/L (23-31); Chloride 93 mmol/L (98-107); Estimated GFR 20; Glucose 194 mg/dL (83-110); Potassium 5.6 mmol/L (3.5-5.1); Protein, Total 6.7 g/dL (5.8-8.1); Sodium 125 mmol/L (136-145)
[2023-02-19 22:09] LABS: Bacteria/HPF 4+ HPF (None Seen); Bilirubin Negative (Negative); Blood, Urine 2+ (Negative); CAUTI Indications for Culture Alt mental st,lethar; Clarity Turbid (Clear); Glucose, Urine (Dipstick) 70 mg/dL (Negative); Ketone, Urine Negative (Negative); Leukocyte 500 Leu/uL (Negative); Nitrite 1+ (Negative); Protein, Urine (Dipstick) 300 mg/dL (Neg-Trace); Specific Gravity, Urine 1.012 (1.002-1.036); Urobilinogen Normal mg/dL (Less than 2); WBC/HPF Greater than 50 HPF (0-3)
[2023-02-19 22:11] LABS: Urine Culture Reflex Yes Yes
[2023-02-19] MEDS ORDERED: Vancomycin 1 GM/200 ML (FROZEN) BAG ONE (22:42)
[2023-02-19] MEDS ORDERED: Hydrocortisone Sod Succ/PF 100 mg/2 ml Vial ONE (22:42)
[2023-02-20] MEDS ORDERED: Vasopressin 20 UNITS/ML VIAL ONE ×2 (00:05→00:27)
[2023-02-20] MEDS ORDERED: Communication Order-Pharmacy FS ONE (01:41)
[2023-02-20] MEDS ORDERED: Acetaminophen 650 MG Suppository PR PRN (01:44)
[2023-02-20] MEDS ORDERED: Electrolyte Replacement Protocol 1 EACH IVPB PRN (01:44)
[2023-02-20] MEDS ORDERED: Acetaminophen 325 MG/10.15 ML UDCUP PO PRN (01:44)
[2023-02-20] MEDS ORDERED: Phenylephrine 40 MG in Sodium Chloride 0.9% 250 ML 250 ML IVPB PRN (01:44)
[2023-02-20] MEDS ORDERED: Ondansetron PF 4 MG/2 ML Vial IVP PRN (01:44)
[2023-02-20] MEDS ORDERED: Calcium Gluc 4.6 MEQ/10 ML (100 MG/ML) SLOW IVP SCH (01:56)
[2023-02-20] MEDS ORDERED: Phenylephrine 40 MG/NS 250 ML 40 MG in Premix Bag 1 BAG IVPB SCH (02:00)
[2023-02-20] MEDS ORDERED: cefTRIAXone\\ROCEPHIN 2 GM in Sodium Chloride 0.9% 100 ML IVPB SCH (03:00)
[2023-02-20] MEDS: Albumin 25% 25 GM/100 ML BOT IVPB SCH ×4 (03:48→21:10)
[2023-02-20] MEDS: Lactated Ringer's 1,000 ML IV SCH ×4 (03:48→15:49)
[2023-02-20 04:33] LABS: Hematocrit 37.4 % (36.0-47.0); Hemoglobin 12.3 g/dL (12.0-16.0); Mean Corpuscular HGB CONC 32.9 g/dL (32.0-36.0); Mean Corpuscular Hemoglobin 24.1 pg (27.0-31.0); Mean Corpuscular Volume 73.2 fl (78.0-98.0); Platelet Count 153 10x3/uL (130-400); RBC Distribution Width 28.9 % (11.5-14.5); Red Blood Cell (RBC) Count 5.11 mill/uL (4.20-5.40); White Blood Cell (WBC) Count 25.2 10x3/uL (4.8-10.8)
[2023-02-20 04:41] LABS: Delete Auto Diff?? YES; Manual Diff?? YES
[2023-02-20] MEDS: NOREPINEPHRINE 8 MG/250 ML-D5W 250 ML IVPB SCH ×2 (04:54→10:35)
[2023-02-20 05:02] LABS: ALT (SGPT) 21 U/L (8-55); AST (SGOT) 19 U/L (5-34); Alkaline Phosphatase 155 U/L (40-110); Anion Gap 19 mmol/L (10-20); BUN (Urea Nitrogen) 117 mg/dL (9.8-20.1); Bilirubin, Total 0.4 mg/dL (0.2-1.2); Calc. Creatinine Clearance 30 mL/min (70-130); Calcium 8.9 mg/dL (7.8-10.44); Carbon Dioxide 21 mmol/L (23-31); Chloride 92 mmol/L (98-107); Estimated GFR 19; Globulin 4.1 g/dL (2.4-3.5); Glucose 210 mg/dL (83-110); Magnesium 2.3 mg/dL (1.6-2.6); Phosphorus 3.3 mg/dL (2.3-4.7); Potassium 5.7 mmol/L (3.5-5.1); Protein, Total 7.1 g/dL (5.8-8.1); Sodium 126 mmol/L (136-145)
[2023-02-20 05:04] LABS: Anisocytosis MARKED = >30 cells HPF (0-5); Band 20 % (5-11); CellaVision Operator ID LAB.CLH1; Hypochromia SLIGHT = 6-15 cells HPF (0-5); Large Platelets 2.9 % (0-5); Lymphocytes 2 % (21-51); Microcytosis SLIGHT = 6-15 cells HPF (0-5); Monocytes 2 % (0-10); Neutrophil 76 % (42-75); Nucleated RBC (Manual Ct) 2 % (0); Platelet Adequacy Comment Platelets Normal; Polychromasia MARKED = >4 cells HPF (0-2); Reactive Lymphocytes 1 % (0-10); Total Cell Count 102
[2023-02-20] MEDS ORDERED: Glucagon 1 MG/ML KIT IM PRN (05:55)
[2023-02-20] MEDS ORDERED: Dextrose 50% Abboject 50 ML SYRINGE SLOW IVP PRN (05:55)
[2023-02-20] MEDS ORDERED: HumaLOG 300 UNITS/3 ML VIAL SC PRN (05:55)
[2023-02-20] MEDS ORDERED: Dextrose 5% in Water 1,000 ML IV PRN (05:55)
[2023-02-20] MEDS ORDERED: Insulin Regular 300 UNITS/3 ML VIAL IVP SCH (06:00)
[2023-02-20] MEDS ORDERED: Sodium Bicarb 50 MEQ/50 ML VIAL IVP SCH (06:30)
[2023-02-20 08:15] LABS: Calcium 8.7 mg/dL (7.8-10.44); Chloride 91 mmol/L (98-107); Potassium 4.7 mmol/L (3.5-5.1); Sodium 131 mmol/L (136-145)
[2023-02-20 08:16] LABS: Glucose 168 mg/dL (83-110)
[2023-02-20 08:17] LABS: Anion Gap 20 mmol/L (10-20); Carbon Dioxide 25 mmol/L (23-31)
[2023-02-20 08:19] LABS: Calc. Creatinine Clearance 30 mL/min (70-130); Estimated GFR 19
[2023-02-20 08:20] LABS: BUN (Urea Nitrogen) 115 mg/dL (9.8-20.1)
[2023-02-20] MEDS: Famotidine/PF 20 mg/2ml Vial SLOW IVP SCH ×2 (08:38→08:39)
[2023-02-20] MEDS: Vasopressin 20 UNITS in Sodium Chloride 0.9% 50 ML IV PRN ×2 (08:38→16:22)
[2023-02-20] MEDS: Ferrous Sulfate 325 MG TAB PO SCH (08:56)
[2023-02-20] MEDS: Cholecalciferol 1,000 UNITS (25 MCG) TAB PO SCH (08:57)
[2023-02-20] MEDS: Folic Acid 1 MG TAB PO SCH (08:57)
[2023-02-20] MEDS: Cyanocobalamin (Vitamin B-12) 1,000 MCG TAB PO SCH (08:57)
[2023-02-20] MEDS: Carvedilol 6.25 MG TAB PO SCH ×2 (08:57→21:37)
[2023-02-20] MEDS: Flecainide 50 MG TAB PO SCH ×2 (08:57→21:09)
[2023-02-20] MEDS ORDERED: Empagliflozin 10 MG TAB PO SCH (09:00)
[2023-02-20] MEDS ORDERED: Apixaban 5 MG TAB PO SCH (09:00)
[2023-02-20] MEDS: Hydrocortisone Sod Succ/PF 100 mg/2 ml Vial IVP SCH ×2 (10:26→14:46)
[2023-02-20] MEDS ORDERED: Vancomycin 1 GM in Premix Bag 1 BAG IVPB SCH (11:18)
[2023-02-20] MEDS ORDERED: Meropenem 1 GM in Sodium Chloride 0.9% 100 ML IVPB SCH ×2 (11:19→11:30)
[2023-02-20] MEDS ORDERED: Vancomycin 1.5 GRAM/300 ML BAG 1.5 GM in Premix Bag 1 BAG IVPB SCH (11:30)
[2023-02-20] MEDS ORDERED: Vancomycin Dose by Levels Sliding Scale (Wt > 99) FS SCH (11:45)
[2023-02-20] MEDS ORDERED: Ketamine 50 MG/ML (10ML VIAL) ONE (13:00)
[2023-02-20] MEDS ORDERED: Midazolam HCl 2 mg/2 ml Vial ONE (13:59)
[2023-02-20] MEDS: Meropenem 500 MG in Sodium Chloride 0.9% 100 ML IVPB SCH (21:08)
[2023-02-20] MEDS: methylPREDNISolone Sod Succ 40 MG VIAL IVP SCH (21:09)
[2023-02-20] MEDS ORDERED: Lactated Ringer's 1,000 ML IV SCH (22:00)
[2023-02-21] MEDS: Ipratropium/Albuterol 3 ML NEB NEB PRN ×2 (00:38→08:54)
[2023-02-21] MEDS ORDERED: Furosemide 20 MG/2 ML VIAL SLOW IVP SCH (02:45)
[2023-02-21 04:56] LABS: #Monocytes 0.6 thou/uL (0.11-0.59); #Neutrophils 13.9 thou/uL (1.40-6.50); %Basophils 0.1 % (0.0-1.0); %Lymphocytes 3.9 % (21.0-51.0); %Monocytes 3.7 % (0.0-10.0); %Neutrophils 91.6 % (42.0-75.0); Hematocrit 30.1 % (36.0-47.0); Hemoglobin 9.5 g/dL (12.0-16.0); Mean Corpuscular HGB CONC 31.6 g/dL (32.0-36.0); Mean Corpuscular Hemoglobin 24.2 pg (27.0-31.0); Mean Corpuscular Volume 76.8 fl (78.0-98.0); Platelet Count 123 10x3/uL (130-400); RBC Distribution Width 29.2 % (11.5-14.5); Red Blood Cell (RBC) Count 3.92 mill/uL (4.20-5.40); White Blood Cell (WBC) Count 15.2 10x3/uL (4.8-10.8)
[2023-02-21 05:15] LABS: Manual Diff?? YES
[2023-02-21 05:19] LABS: ALT (SGPT) 17 U/L (8-55); AST (SGOT) 17 U/L (5-34); Albumin 3.8 g/dL (3.4-4.8); Alkaline Phosphatase 129 U/L (40-110); Anion Gap 19 mmol/L (10-20); BUN (Urea Nitrogen) 92 mg/dL (9.8-20.1); Bilirubin, Total 0.5 mg/dL (0.2-1.2); Calc. Creatinine Clearance 33 mL/min (70-130); Calcium 8.9 mg/dL (7.8-10.44); Carbon Dioxide 24 mmol/L (23-31); Chloride 97 mmol/L (98-107); Estimated GFR 21; Globulin 3.2 g/dL (2.4-3.5); Glucose 124 mg/dL (83-110); Potassium 4.3 mmol/L (3.5-5.1); Sodium 136 mmol/L (136-145)
[2023-02-21] MEDS: methylPREDNISolone Sod Succ 40 MG VIAL IVP SCH ×2 (08:29→20:57)
[2023-02-21] MEDS: Meropenem 500 MG in Sodium Chloride 0.9% 100 ML IVPB SCH ×2 (08:29→20:57)
[2023-02-21 08:34] LABS: Anisocytosis MODERATE=16-30 cells HPF (0-5); Band 28 % (5-11); Burr Cells MODERATE= 6-15 cells HPF (0-1); CellaVision Operator ID LAB.GE; Lymphocytes 4 % (21-51); Monocytes 5 % (0-10); Neutrophil 64 % (42-75); Nucleated RBC (Manual Ct) 1 % (0); Platelet Adequacy Comment Platelets Decreased; Poikilocytosis SLIGHT = 6-15 cells HPF (0-5); Polychromasia MODERATE = 3-4 cells HPF (0-2); Smudge Cells 3.9 %; Total Cell Count 102; Toxic Granulation SLIGHT; Vacuoles SLIGHT
[2023-02-21] MEDS: Ferrous Sulfate 325 MG TAB PO SCH (08:34)
[2023-02-21] MEDS: Cholecalciferol 1,000 UNITS (25 MCG) TAB PO SCH (08:35)
[2023-02-21] MEDS: Folic Acid 1 MG TAB PO SCH (08:35)
[2023-02-21] MEDS: Flecainide 50 MG TAB PO SCH ×2 (08:35→20:26)
[2023-02-21] MEDS: Cyanocobalamin (Vitamin B-12) 1,000 MCG TAB PO SCH (08:35)
[2023-02-21] MEDS: Carvedilol 6.25 MG TAB PO SCH ×2 (08:35→20:25)
[2023-02-21] MEDS: Floranex 1 GM Packet PO SCH (08:35)
[2023-02-21] MEDS ORDERED: Furosemide 40 MG/4 ML VIAL SLOW IVP SCH (09:15)
[2023-02-21] MEDS ORDERED: SODIUM CHLORIDE 0.9% IVPB SCH (09:15)
[2023-02-21] MEDS ORDERED: FUROSEMIDE IVPB SCH (09:15)
[2023-02-21] MEDS ORDERED: Ipratropium/Albuterol 3 ML NEB NEB PRN (14:09)
[2023-02-21] MEDS ORDERED: Albuterol 2.5 MG/0.5 ML NEB ONE (14:30)
[2023-02-21 16:03] LABS: Vancomycin, Random 23.5 ug/mL (See Comment)
[2023-02-22] MEDS ORDERED: Metoprolol Tartrate 5 MG/5 ML VIAL IVP SCH (01:00)
[2023-02-22 04:53] LABS: Hematocrit 31.8 % (36.0-47.0); Mean Corpuscular HGB CONC 31.4 g/dL (32.0-36.0); Mean Corpuscular Hemoglobin 24.1 pg (27.0-31.0); Mean Corpuscular Volume 76.6 fl (78.0-98.0); Platelet Count 124 10x3/uL (130-400); RBC Distribution Width 29.5 % (11.5-14.5); Red Blood Cell (RBC) Count 4.15 mill/uL (4.20-5.40); White Blood Cell (WBC) Count 11.8 10x3/uL (4.8-10.8)
[2023-02-22 05:06] LABS: Delete Auto Diff?? YES; Manual Diff?? YES
[2023-02-22 05:14] LABS: ALT (SGPT) 15 U/L (8-55); AST (SGOT) 14 U/L (5-34); Albumin 3.6 g/dL (3.4-4.8); Alkaline Phosphatase 131 U/L (40-110); Anion Gap 22 mmol/L (10-20); BUN (Urea Nitrogen) 85 mg/dL (9.8-20.1); Bilirubin, Total 0.5 mg/dL (0.2-1.2); Calc. Creatinine Clearance 37 mL/min (70-130); Calcium 9.4 mg/dL (7.8-10.44); Carbon Dioxide 29 mmol/L (23-31); Chloride 98 mmol/L (98-107); Estimated GFR 24; Globulin 3.6 g/dL (2.4-3.5); Glucose 144 mg/dL (83-110); Potassium 3.7 mmol/L (3.5-5.1); Protein, Total 7.2 g/dL (5.8-8.1); Sodium 145 mmol/L (136-145)
[2023-02-22 05:42] LABS: Anisocytosis SLIGHT = 6-15 cells HPF (0-5); Band 4 % (5-11); Burr Cells SLIGHT = 2-5 cells HPF (0-1); CellaVision Operator ID lab.abc; Lymphocytes 10 % (21-51); Microcytosis SLIGHT = 6-15 cells HPF (0-5); Monocytes 5 % (0-10); Neutrophil 81 % (42-75); Nucleated RBC (Manual Ct) 1 % (0); Platelet Adequacy Comment Platelets Decreased; Poikilocytosis SLIGHT = 6-15 cells HPF (0-5); Polychromasia SLIGHT = 2-3 cells HPF (0-2); Target Cells SLIGHT = 2-5 cells HPF (0-1); Total Cell Count 101
[2023-02-22] MEDS: Famotidine/PF 20 mg/2ml Vial SLOW IVP SCH (08:28)
[2023-02-22] MEDS: Meropenem 500 MG in Sodium Chloride 0.9% 100 ML IVPB SCH ×2 (08:28→20:43)
[2023-02-22] MEDS: Ferrous Sulfate 325 MG TAB PO SCH (08:28)
[2023-02-22] MEDS: methylPREDNISolone Sod Succ 40 MG VIAL IVP SCH (08:28)
[2023-02-22] MEDS: Carvedilol 6.25 MG TAB PO SCH ×2 (08:49→20:44)
[2023-02-22] MEDS: Flecainide 50 MG TAB PO SCH ×2 (08:49→20:44)
[2023-02-22] MEDS: Cholecalciferol 1,000 UNITS (25 MCG) TAB PO SCH (08:52)
[2023-02-22] MEDS: Folic Acid 1 MG TAB PO SCH (08:52)
[2023-02-22] MEDS: Cyanocobalamin (Vitamin B-12) 1,000 MCG TAB PO SCH (09:01)
[2023-02-22] MEDS: Floranex 1 GM Packet PO SCH (09:48)
[2023-02-22 16:47] LABS: Vancomycin, Random 19.3 ug/mL (See Comment)
[2023-02-22] MEDS ORDERED: Vancomycin HCl 500 MG in Sodium Chloride 0.9% 100 ML IVPB SCH (17:00)
[2023-02-23 07:04] LABS: #Monocytes 1.1 thou/uL (0.11-0.59); #Neutrophils 7.8 thou/uL (1.40-6.50); %Basophils 0.4 % (0.0-1.0); %Eosinophils 0.1 % (0.0-10.0); %Lymphocytes 13.2 % (21.0-51.0); %Monocytes 9.9 % (0.0-10.0); %Neutrophils 73.5 % (42.0-75.0); Hematocrit 35.4 % (36.0-47.0); Hemoglobin 10.7 g/dL (12.0-16.0); Mean Corpuscular HGB CONC 30.2 g/dL (32.0-36.0); Mean Corpuscular Hemoglobin 23.7 pg (27.0-31.0); Mean Corpuscular Volume 78.5 fl (78.0-98.0); Platelet Count 128 10x3/uL (130-400); RBC Distribution Width 29.5 % (11.5-14.5); Red Blood Cell (RBC) Count 4.51 mill/uL (4.20-5.40); White Blood Cell (WBC) Count 10.6 10x3/uL (4.8-10.8)
[2023-02-23 07:47] LABS: ALT (SGPT) 16 U/L (8-55); AST (SGOT) 24 U/L (5-34); Albumin 3.5 g/dL (3.4-4.8); Alkaline Phosphatase 124 U/L (40-110); Anion Gap 23 mmol/L (10-20); BUN (Urea Nitrogen) 86 mg/dL (9.8-20.1); Bilirubin, Total 0.5 mg/dL (0.2-1.2); Calc. Creatinine Clearance 41 mL/min (70-130); Calcium 9.5 mg/dL (7.8-10.44); Carbon Dioxide 26 mmol/L (23-31); Chloride 107 mmol/L (98-107); Estimated GFR 30; Globulin 3.9 g/dL (2.4-3.5); Glucose 127 mg/dL (83-110); Potassium 4.4 mmol/L (3.5-5.1); Protein, Total 7.4 g/dL (5.8-8.1); Sodium 152 mmol/L (136-145)
[2023-02-23] MEDS: Floranex 1 GM Packet PO SCH (08:15)
[2023-02-23] MEDS: Famotidine/PF 20 mg/2ml Vial SLOW IVP SCH (08:16)
[2023-02-23] MEDS: Folic Acid 1 MG TAB PO SCH (08:16)
[2023-02-23] MEDS: Meropenem 500 MG in Sodium Chloride 0.9% 100 ML IVPB SCH (08:16)
[2023-02-23] MEDS: Cholecalciferol 1,000 UNITS (25 MCG) TAB PO SCH (08:16)
[2023-02-23] MEDS: Flecainide 50 MG TAB PO SCH ×2 (08:17→20:24)
[2023-02-23] MEDS: Cyanocobalamin (Vitamin B-12) 1,000 MCG TAB PO SCH (08:17)
[2023-02-23] MEDS: Carvedilol 6.25 MG TAB PO SCH ×2 (08:17→20:25)
[2023-02-23] MEDS: Ferrous Sulfate 325 MG TAB PO SCH (08:17)
[2023-02-23] MEDS ORDERED: methylPREDNISolone Sod Succ 40 MG VIAL IVP SCH (09:00)
[2023-02-23] MEDS ORDERED: Sodium Chloride 0.9% 1,000 ML IV SCH (09:45)
[2023-02-23] MEDS ORDERED: Dextrose 5% in Water 1,000 ML IV SCH ×2 (09:45→13:15)
[2023-02-23 12:06] VITALS: BMI 37.4
[2023-02-23] MEDS ORDERED: cefTRIAXone\\ROCEPHIN 2 GM in Sodium Chloride 0.9% 100 ML IVPB SCH (14:00)
[2023-02-23 16:43] LABS: Vancomycin, Random 18.5 ug/mL (See Comment)
[2023-02-23 19:10] VITALS: TEMP 97.7
[2023-02-23 20:25] VITALS: BP 148/74
[2023-02-23] MEDS ORDERED: QUEtiapine 25 MG TAB PO SCH (21:00)
== END 2023-02-24 00:13 | disposition expired | DRG 853 ==
LOC: ERS 21:04 → CCU 02-20 01:56
PROVIDERS: ADMIT Student in an Organized Health Care Education/Training Program; ATTEND Internal Medicine
PROC: 0T788DZ Dilation of Bilateral Ureters with Intraluminal Device, Via Natural or Artificial Opening Endoscopic (ICD-10-PCS; principal; 2023-02-20)
PROC: 02HV33Z Insertion of Infusion Device into Superior Vena Cava, Percutaneous Approach (ICD-10-PCS; 2023-02-20)
PROC: B548ZZA Ultrasonography of Superior Vena Cava, Guidance (ICD-10-PCS; 2023-02-20)
PROC: 30233J1 Transfusion of Nonautologous Serum Albumin into Peripheral Vein, Percutaneous Approach (ICD-10-PCS; 2023-02-20)
PROC: 3E033XZ Introduction of Vasopressor into Peripheral Vein, Percutaneous Approach (ICD-10-PCS; 2023-02-20)
PROC: 3E03329 Introduction of Other Anti-infective into Peripheral Vein, Percutaneous Approach (ICD-10-PCS; 2023-02-20)
PROC: 0DH67UZ Insertion of Feeding Device into Stomach, Via Natural or Artificial Opening (ICD-10-PCS; 2023-02-23)
DX: A41.51 Sepsis due to Escherichia coli [E. coli] (principal); J18.9 Pneumonia, unspecified organism; R65.21 Severe sepsis with septic shock; J96.01 Acute respiratory failure with hypoxia; N17.0 Acute kidney failure with tubular necrosis; I50.32 Chronic diastolic (congestive) heart failure; E87.1 Hypo-osmolality and hyponatremia; N13.6 Pyonephrosis; E87.20 Acidosis, unspecified; Z16.24 Resistance to multiple antibiotics; I48.20 Chronic atrial fibrillation, unspecified; G93.49 Other encephalopathy; E87.0 Hyperosmolality and hypernatremia; I13.0 Hypertensive heart and chronic kidney disease with heart failure and stage 1 through stage 4 chronic kidney disease, or unspecified chronic kidney disease; J45.909 Unspecified asthma, uncomplicated; E87.5 Hyperkalemia; I95.9 Hypotension, unspecified; K57.30 Diverticulosis of large intestine without perforation or abscess without bleeding; E66.01 Morbid (severe) obesity due to excess calories; I27.21 Secondary pulmonary arterial hypertension; N18.2 Chronic kidney disease, stage 2 (mild); I49.01 Ventricular fibrillation; I46.2 Cardiac arrest due to underlying cardiac condition; R13.10 Dysphagia, unspecified; E88.09 Other disorders of plasma-protein metabolism, not elsewhere classified; Z79.51 Long term (current) use of inhaled steroids; Z79.01 Long term (current) use of anticoagulants; Z79.899 Other long term (current) drug therapy; Z98.890 Other specified postprocedural states; Z90.49 Acquired absence of other specified parts of digestive tract; Z90.710 Acquired absence of both cervix and uterus; Z68.37 Body mass index [BMI] 37.0-37.9, adult
CPT/HCPCS: 36415; 36416; 36556; 51702; 71045; 74018; 74176; 80053; 80202; 83605; 83735; 83880; 84100; 84145; 85025; 87040; 87077; 87086; 87186; 93005; 94640; 94760; 96361; 96365; 96366; 96368; 96375; 97139; C2617; J0696; J1650; J1720; J1815; J1940; J2185; J2250; J2920; J3370; J3370-JW; J3490; J7070; J7120; J7611; J7620; P9047; S0028